=== PATIENT | female | born 1935 | race Caucasian/White ===

== ENCOUNTER → 2019-07-09 14:22 | Outpatient (CLI) | payer MEDICARE, SELFPAY ==
--- NOTE | ~2019-07-09 | XR_ITS ---
XR chest 2V DATE: 07/09/2019 14:43 INDICATION: Left chest pain under breast radiating to back for 2 weeks. TECHNIQUE: 2 views COMPARISON: 01/19/2016 right RIBS with PA chest FINDINGS: Normal heart size. No hilar or mediastinal enlargement. No pulmonary infiltrate or consolid ation, pleural effusion or pulmonary vascular congestion or pneumothorax. Diffuse osteopenia. IMPRESSION: No active cardiopulmonary disease Reviewed, dictated and finalized at location A.
== END ==
PROVIDERS: PCP Family Medicine; Visit Provider Family Medicine
DX: R10.13 Epigastric pain (principal); R07.9 Chest pain, unspecified
CPT/HCPCS: 71046

== ENCOUNTER 2019-07-24 10:33 | Outpatient (CLI) | payer MEDICARE, SELFPAY ==
--- NOTE | ~2019-07-24 | US_ITS ---
EXAMINATION: US right upper quadrant DATE: 07/24/2019 11:12 INDICATION: Generalized abdominal pain. TECHNIQUE: Multiple grayscale and Doppler ultrasound images of the abdomen were obtained. COMPARISON: None FINDINGS: The visualized portions of the head, body, and tail of the pancreas are normal. There is di ffuse hepatic steatosis. There is normal flow in main portal vein. The gallbladder is normal in size. No gallstones or gallbladder wall thickening. There is no sonographic Jimenez sign. The common duct m easures 8 mm, which is normal for age. IMPRESSION: 1. Diffuse hepatic steatosis. Reviewed, dictated and finalized at location A.
== END 2019-07-24 10:34 | disposition home or self-care (01) ==
LOC: ANHIMG 10:35
PROVIDERS: PCP Family Medicine; Visit Provider Family Medicine
DX: R10.9 Unspecified abdominal pain (principal); K76.0 Fatty (change of) liver, not elsewhere classified
CPT/HCPCS: 76705

== ENCOUNTER 2019-09-29 08:29 | Outpatient (CLI) | payer MEDICARE, SELFPAY ==
--- NOTE | ~2019-09-29 | MM_ITS ---
EXAMINATION: MM screen RT diag LT w divya HISTORY: Breast pain TECHNIQUE: Additional 3-D tomosynthesis images of the left breast were performed and synthetic 2-D im ages were generated. Screening right mammogram. CAD analysis was submitted and interpreted. COMPARISON: 05/27/2012 BREAST PARENCHYMAL COMPOSITION: BREAST PARENCHYMAL COMPOSITION: There are scattered areas of fibroglandular density. FINDINGS: There are no suspicious masses, calcifications or architectural distortion in either breast to suggest malignancy. IMPRESSION: 1. No mammographic evidence for malignancy. 2. Routine yearly screening mammogram and regular clinical breast examination are recommended. BI-RADS CATEGORY 1 - NEGATIVE Reviewed, dictated and finalized at location A. IMPRESSION: 1. No mammographic evidence for malignancy. 2. Routine yearly screening mammogram and regular clinical breast examination a re recommended. BI-RADS CATEGORY 1 - NEGATIVE
== END 2019-09-29 08:30 | disposition home or self-care (01) ==
PROVIDERS: PCP Family Medicine; Visit Provider Family Medicine
DX: Z12.31 Encounter for screening mammogram for malignant neoplasm of breast (principal); N64.4 Mastodynia
CPT/HCPCS: 77063; 77065; 77067

== ENCOUNTER 2022-01-15 10:47 | Outpatient (CLI) | payer MEDICARE, SELFPAY ==
--- NOTE | ~2022-01-15 | XR_ITS ---
EXAM: XR lumbar spine 2-3V DATE: 01/15/2022 11:12 HISTORY: LOW BACK PAIN W/RT LEG NUMBNESS LT LEG PAIN . COMPARISON: None available. FINDINGS: Incompletely visualized left hip arthroplasty. Upper abdominal vascular stent, possibly SMA origin. Lower abdominal vascular stent, possibly the left common iliac vein. Mild lumbar scoliosis 5 nonrib-bearing lumbar-type vertebral bodies. Pedicles intact. Normal vertebral body alignment. Verte bral body heights preserved. Multilevel mild disc space narrowing and marginal osteophytosis. Moderat e-severe narrowing at L5-S1. Multilevel facet hypertrophy and sclerosis. No fracture or dislocation. Aortic calcifications without evident aneurysm. IMPRESSION: Multilevel degenerative disc disease, moderate-severe at L5-S1. Multilevel facet arthropa thy. Reviewed, dictated and finalized at location K. E PROCESS OPERATOR IMPRESSION: Multilevel degenerative disc disease, moderate-severe at L5-S1. Mul tilevel facet arthropathy.
== END 2022-01-15 10:48 | disposition home or self-care (01) ==
LOC: ANHIMG 10:52
PROVIDERS: PCP Family Medicine; Visit Provider Family Medicine
DX: M51.36 Other intervertebral disc degeneration, lumbar region (principal); M51.37 Other intervertebral disc degeneration, lumbosacral region
CPT/HCPCS: 72100

== ENCOUNTER 2022-05-17 10:29 | Outpatient (CLI) | payer MEDICARE, SELFPAY ==
--- NOTE | ~2022-05-17 | XR_ITS ---
AP and lateral views of the left tibia/fibula Clinical History: Pain Findings: No acute fracture or dislocation is seen. Osseous alignment is anatomic. Joint spaces are p reserved without significant erosive or degenerative change. Soft tissues are unremarkable. Impression: Unremarkable left tib-fib radiographs. Reviewed, dictated and finalized at [facility]. Impression: Unremarkable left tib-fib radiographs.
== END 2022-05-17 10:30 | disposition home or self-care (01) ==
PROVIDERS: PCP Family Medicine; Visit Provider Physician Assistant
DX: M79.605 Pain in left leg (principal)
CPT/HCPCS: 73590

== ENCOUNTER 2023-09-17 10:25 | Observation (INO) | payer MEDICARE, SELFPAY ==
[2023-09-17] VITALS (24 sets, daily range): BP systolic 110–147; BP diastolic 55–60; PULSE 67–97; RESP 10–26; TEMP 37.3–37.9; O2SAT 90–97; BMI 30.7; BMI 31.0
--- NOTE | 2023-09-17 | ECHO_ITS ---
Patient Info Name: Shannon Sanderson Age: 88 years : 1935 Gender: Female Ht: 65 in Wt: 185 lbs BSA: 1.99 m2 HR: 75 bpm Heart Rhythm: Sinus Rhythm Technical Quality: Good Exam Date: 09/17/2023 3:47 PM Exam Location: Echo Lab Patient Status: Outpatient Admit Date: 09/17/2023 Staff Ordering Physician: Nia Doshi PA-C Business Transformation Consultant: Anya Marquez RDCS Attending Provider: Hamida Mchugh MD Referring Physician: Glenda EDWARD; Exam Type: CA echo dop color flow w con Study Info Indications - elevated troponin Complete two-dimensional, color flow and Doppler transthoracic echocardiogram is performed. Summary 1. Complete two-dimensional, color flow and Doppler transthoracic echocardiogram is performed. 2. Left ventricular chamber dimension is normal. 3. Left ventricular systolic function is normal, estimated at 65-70%. 4. There is mildly increased left ventricular wall thickness. 5. The left ventricular diastolic function is grade I diastolic dysfunction. 6. Right ventricular chamber dimension is mildly enlarged. 7. Left atrial chamber dimension is moderately enlarged. 8. Right atrial chamber dimension is mildly enlarged. 9. 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 10. There is mild mitral valve regurgitation. 11. The mitral valve annulus is severely calcified. 12. There is mild tricuspid valve regurgitation. 13. Mild pulmonary hypertension, estimated pulmonary arterial systolic pressure is 39 mmHg. Left Ventricle Left ventricular chamber dimension is normal. Left ventricular systolic function is normal, estimated at 65-70%. There is mildly increased left ventricular wall thickness. The left ventricular diastolic function is grade I diastolic dysfunction. Right Ventricle Right ventricular chamber dimension is mildly enlarged. Right ventricular systolic function is normal. Left Atria Left atrial chamber dimension is moderately enlarged. Right Atria Right atrial chamber dimension is mildly enlarged. Atrial Septum Intact interatrial septum visualized by color flow imaging. Aortic Valve The bioprosthetic aortic valve is normal. 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 There is trace regurgitation of the bioprosthetic aortic valve. Pulmonic Valve The pulmonic valve is normal. There is no pulmonic valve stenosis. There is trace pulmonic regurgitation. Mitral Valve There is mild mitral valve stenosis. There is mild mitral valve regurgitation. The mitral valve annulus is severely calcified. Tricuspid Valve The tricuspid valve leaflets are normal. There is no significant tricuspid valve stenosis. There is mild tricuspid valve regurgitation. Mild pulmonary hypertension, estimated pulmonary arterial systolic pressure is 39 mmHg. Pericardium/Pleural The pericardium appears normal. There is no pericardial effusion. Inferior Vena Cava Normal inferior vena cava with <50% collapse upon inspiration consistent with normal right atrial pressure, 10 mmHg. Aorta The aortic root size at the sinus of Valsalva is normal. Left Ventricular Outflow Tract Name Value Normal LVOT 2D LVOT Diamet
--- NOTE | ~2023-09-17 | XR_ITS ---
EXAMINATION: XR chest 2V DATE: 09/17/2023 10:57 INDICATION: Cough. Shortness of breath. TECHNIQUE: Frontal and lateral views of the chest were obtained. COMPARISON: Chest 2 views 07/09/2019 FINDINGS: There are airspace opacities in all right lung zones, worst in right upper lobe. No pleural effusion or pneumothorax. The heart size is normal. There are changes of aortic valve replacement. IMPRESSION: 1. Airspace opacities in all right lung zones, worst in right upper lobe, consistent with pneumonia. Reviewed, dictated and finalized at location A. IMPRESSION: 1. Airspace opacities in all right lung zones, worst in right upper lobe, consi stent with pneumonia.
--- NOTE | ~2023-09-17 | CT_ITS ---
EXAMINATION: CTA chest PE protocol DATE: 09/17/2023 13:26 INDICATION: Cough. Shortness of breath. TECHNIQUE: Computed tomography angiography (CTA) of the chest was performed with 100 mL Omnipaque-350 intravenous contrast timed to evaluate the pulmonary arteries. Coronal maximum intensity projection 3D-reconstructions were created by the technologist. Automated exposure control and iterative reconst ruction technique were employed. The dose-length product was 470.01 mGy-cm. COMPARISON: None. FINDINGS: The lungs demonstrate mild atelectasis. There are patchy airspace and groundglass opacities and centrilobular nodules in right upper lobe and right lower lobe, consistent with pneumonia. There is smooth septal thickening bilaterally, consistent with mild pulmonary edema. No pleural effusion. There is a small sliding hiatal hernia. The heart size is normal. There are coronary artery calcifica tions. No pericardial effusion. There are changes of aortic valve replacement. There is no pulmonary embolus. There is severe thoracic spondylosis. IMPRESSION: 1. Pneumonia in right upper lobe and right lower lobe. 2. Mild pulmonary edema. 3. No pulmonary embolus. Reviewed, dictated and finalized at location A.
--- NOTE | 2023-09-17 10:34 | ECG_ITS ---
Test Date: 2023-09-17 10:38:46 Measurements Intervals [place] Rate: 93 P: 56 NC: 124 QRS: -55 QRSD: 101 T: 49 QT: 331 QTc: 412 Interpretive Statements SINUS RHYTHM LEFT AXIS DEVIATION POSSIBLE LEFT ATRIAL ENLARGEMENT LOW QRS VOLTAGE IN PRECORDIAL LEADS ANTEROSEPTAL MYOCARDIAL INFARCTION , OF INDETERMINATE AGE INFERIOR INFARCT, AGE INDETERMINATE BORDERLINE ST-T WAVE ABNORMALITY- LAT/HIGH LAT LEADS BASELINE ARTIFACT- I, II, AVR ABNORMAL ECG No previous ECG available for comparison Electronically Signed On 09-17-2023 11:01:43 CDT by Benja Liu D.O.
[2023-09-17 10:56] LABS: Basophils Percent Auto 0.3 % (0.2-1.2); Eosinophils Absolute Auto 0.1 K/mm3 (0-0.3); Eosinophils Percent Auto 0.5 % (0-4.4); Hematocrit 40.7 % (37.0-47.0); Hemoglobin 13.3 g/dL (12.0-15.0); Immature Granulocyte Absolute 0.06 K/mm3 (0.00-0.031); Immature Granulocyte Percent A 0.5 % (0-0.5); Lymphocytes Absolute Auto 0.76 K/mm3 (0.9-3.2); Lymphocytes Percent Auto 6.7 % (18.3-44.2); Mean Corpuscular HGB Conc 32.7 g/dl (32-36); Mean Corpuscular Hemoglobin 31.1 pg (26-34); Mean Corpuscular Volume 95.3 fl (80-100); Monocytes Absolute Auto 0.6 K/mm3 (0.1-0.6); Monocytes Percent Auto 5.4 % (2.6-8.5); Neutrophils Absolute Auto 9.9 K/mm3 (1.3-6.7); Neutrophils Percent Auto 86.6 % (45.5-73.1); Platelet Count Result 212 k/mm3 (150-375); Red Blood Count 4.27 M/mm3 (4.2-5.4); Red Cell Distribution Width 12.9 % (11.5-14.5); White Blood Count 11.4 K/mm3 (4.5-10.0)
[2023-09-17 11:05] LABS: Alanine Aminotransferase 36 U/L (6-35); Albumin Level 4.3 g/dL (3.5-5.1); Alkaline Phosphatase 86 U/L (38-126); Anion Gap 13 mmol/L (4-12); Aspartate Amino Transferase 54 U/L (14-36); Bilirubin,Total 0.9 mg/dL (0.2-1.3); Blood Urea Nitrogen 13 mg/dL (7-17); Calcium 9.2 mg/dL (8.4-10.2); Carbon Dioxide 23 mmol/L (22-30); Chloride 100 mmol/L (98-107); Estimated CRCL calculation 61 ml/min; Estimated Glomerular Filt Rate > 60; Glucose 148 mg/dL (65-110); Potassium 3.7 mmol/L (3.4-5.0); Sodium 136 mmol/L (137-145)
[2023-09-17 11:16] LABS: NT Pro B Type Natriuretic Pept 300 pg/mL (19.9-100); Troponin I 0.017 ng/mL (0.000-0.034)
[2023-09-17 11:20] LABS: Prothrombin Time 13.6 Seconds (11.1-14.7)
[2023-09-17 11:27] LABS: D Dimer 2.08 ug/mL (<0.48)
[2023-09-17 11:32] LABS: Influenza A QL RT-PCR Negative (Negative); Influenza B QL RT-PCR Negative (Negative); RSV RNA, RT-PCR Negative (Negative); SARS-CoV-2 RNA PCR Negative (Negative)
[2023-09-17] MEDS: ACETAMINOPHEN 500 MG TABLET 1000 MG PO (12:34)
--- NOTE | 2023-09-17 12:50 | ED.WEAKNESS ---
HPI - Weakness General Chief complaint: Weakness Stated complaint: weakness, cough Time Seen by Provider: 09/17/23 10:46 Source: patient Mode of arrival: ambulatory Limitations: no limitations History of Present Illness HPI Narrative: Patient is an 88-year-old female who presents to ED with cough and weakness. Patient's family members at bedside reports patient has been sick for the last 3 weeks, but has become worse over the last few days. C/o cough, chills, SOB -worse with exertion, and generalized weakness. Reports she required assistance with simple ambulation today which is not usual for her, as well as N/V today, which prompted family to bring her to the emergency department. Family does report she was exposed to COVID-19 recently. Patient denies known fevers, focal weakness or numbness, chest pain, lower extremity pain or swelling, hemoptysis, abdominal pain. Related Data Home Medications Medication Instructions Recorded Confirmed amlodipine 10 mg tablet 10 mg PO DAILY 09/02/23 09/17/23 atorvastatin 40 mg tablet 40 mg PO DAILY 09/02/23 09/17/23 clopidogrel 75 mg tablet 75 mg PO DAILY 09/02/23 09/17/23 furosemide 20 mg tablet 20 mg PO QAM 09/02/23 09/17/23 levothyroxine 50 mcg capsule 50 mcg PO DAILY 09/02/23 09/17/23 omeprazole 20 mg capsule,delayed 20 mg PO DAILY 09/02/23 09/17/23 release potassium chloride 10 mEq 10 meq PO DAILY 09/02/23 09/17/23 tablet,extended release trazodone 50 mg tablet 50 mg PO QHS 09/02/23 09/17/23 Allergies Allergy/AdvReac Type Severity Reaction Status Date / Time No Known Allergies Allergy Verified 09/17/23 15:27 Review of Systems Review of Systems: CONSTITUTIONAL: See HPI. ENT: Denies rhinorrhea, congestion, sore throat. CARDIOVASCULAR: Denies chest pain, palpitations, or edema. RESPIRATORY: See HPI. GASTROINTESTINAL: See HPI. All systems reviewed & are unremarkable except as noted in HPI and below PMFSH Past Medical History Medical History Alcohol abuse Coronary heart disease DVT (deep venous thrombosis) Heart valve problem Hyperlipidemia Hypertension Hypothyroidism Presence of stent in coronary artery in patient with coronary artery disease Skin cancer Surgical History Surgical History Aortic valve replaced History of appendectomy History of tubal ligation Status post bilateral total hip replacement Family History Family History Father , lung cancer No problems noted. Mother Heart disease Sibling , cancer No problems noted. Social History Social History Social History: Lives alone with dog. Smoking packs per day: 1 Smoking cigarettes per day: 20.0 Years smoked: 10 Smoking pack-years: 10.00 Smoking status: Former smoker Tobacco type: cigarettes Second hand tobacco smoke exposure: Yes Alcohol intake: current Alcohol use details: 3-4 glasses of wine/night and will occasionally drink a few beers as well. 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 Gender identity (if verbalized by the patient): Female Spiritual care concerns: No Exam Narrative: GENERAL: Elderly, mildly unwell appearing, Obese with BMI of 31.1 HEAD: Normoce
[2023-09-17] MEDS: SODIUM CHLORIDE 0.9% IV 1,000 ML 999 ML IV CONT (13:28)
[2023-09-17 14:14] LABS: Appearance Urine Clear (Clear); Bilirubin Urine Negative (Negative); Blood Urine Negative (Negative); Color Urine Yellow (Yellow); Glucose Urine UA Negative (Negative); Ketones Urine Negative (Negative); Leukocyte Esterase Ur Negative LEU/UL (Negative); Nitrate Urine Negative (Negative); Protein Urine Negative (Negative); Specific Grav Ur > 1.045 (1.001-1.035); Urobilinogen Urine 0.2 mg/dL (<2.0)
[2023-09-17] MEDS: AZITHROMYCIN 500 MG/NS 250 ML 500 MG/250 ML BAG 250 MG IVPB (14:16)
[2023-09-17 14:25] LABS: Add Urine Microscopic? NO
--- NOTE | 2023-09-17 14:27 | PM.IMHP ---
H&P: HPI History of Present Illness Date/Time: 09/17/23 14:27 Chief Complaint: Weakness and cough Narrative: 88 year old female with past medical history of CAD s/p stent placement, aortic valve replacement, hypertension, hyperlipidemia, hypothyroidism, history of bilateral DVTs s/p stents, and skin cancer s/p excision presents to the hospital for worsening weakness and cough. Patient gives a majority of the history and her daughter adding additional history with her permission. Of note patient reports recent exposure to Covid. The weakness and cough started approximately 3 weeks ago and has become increasingly worse since last Saturday. Patient states that the cough has become more severe and is now waking her from her sleep. The cough is nonproductive. She notes increased shortness of breath with ambulation, but none at rest. She denies chest pain and palpitations. She denies increased cough/choking while eating. She had two episodes of emesis today with movement. She denies hematemesis and has no abdominal pain. She reports increased falls, with the most recent being Saturday where she slid off of her bed. She denies lightheadedness/dizziness prior to falls and did not hit her head or lose consciousness. She was unable to get up, requiring her son to assist her back to bed. Discussed code status with patient and she wishes to be made a DNR. ED workup: Febrile (100.3F). Leukocytosis 11.4 on CBC. CMP with Na 126, K 3.7, BUN/Cr 13/0.6. LFTs mildly elevated. BNP 300. Troponin 0.084. PT/INR 13.6/1.0. PTT 22. D dimer 2.08. Urinalysis unremarkable. Covid/flu/RSV negative. Chest XR showing airspace opacities in all right lung zones, worst in right upper lobe, consistent with pneumonia. Chest CTA showing pneumonia of the right upper/lower lobe, mild pulmonary edema and no PE. Review of Systems Review of Systems: All systems reviewed & are unremarkable except as noted in HPI and below [facility] Past Medical History Medical History (Updated 09/17/23 @ 15:35 by Nia Doshi PA-C) Alcohol abuse Coronary heart disease DVT (deep venous thrombosis) Heart valve problem Hyperlipidemia Hypertension Hypothyroidism Presence of stent in coronary artery in patient with coronary artery disease Skin cancer Surgical History Surgical History (Updated 09/17/23 @ 15:29 by Nia Doshi PA-C) Aortic valve replaced History of appendectomy History of tubal ligation Status post bilateral total hip replacement Family History Family History (Updated 09/02/23 @ 14:49 by Tamiko Villarreal [facility]) Father , lung cancer No problems noted. Mother Heart disease Sibling , cancer No problems noted. Social History Social History (Updated 09/17/23 @ 15:31 by Nia Doshi PA-C) Social History: Lives alone with dog. Smoking packs per day: 1 Smoking cigarettes per day: 20.0 Years smoked: 10 Smoking pack-years: 10.00 Smoking status: Former smoker Tobacco type: cigarettes Second hand tobacco smoke exposure: Yes Alcohol intake: current Alcohol use details: 3-4 glasses of wine/night and will occasionally drink a few beers as well. 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 Gender identity (if verbalized by the patient): Female Spiritual care concerns: No Meds Home Medications and Allergies Home Medications Medication Instructions Recorded Confirmed Type amlo
[2023-09-17 14:57] LABS: Troponin I 0.084 ng/mL (0.000-0.034)
--- NOTE | 2023-09-17 15:11 | PC.NURSE ---
This patient, Shannon Sanderson, was admitted to [facility] Surg Room 306-01 at 15:11. Patient/family oriented to hospital policies and general routines including ID bracelet, bed and alarms, visiting hours, pain management, procedures, bathroom and other care routines, personal items, smoking policy, room service/diet, and visiting hours. Information on how to activate the Rapid Response Team has been discussed. Patient/Family are encouraged to report perceived risks to care and to ask questions if they do not understand what they are told or what they should do.
[2023-09-17] MEDS: PERFLUTREN LIPID MICROSPHERES 1.5 ML VIAL DILUTED TO 10 ML TOTAL VOLUME IV PUSH (15:50)
--- NOTE | 2023-09-17 16:17 | IVDEFINITY ---
Prior to administration of IV Definity the patient was educated on the risks and benefits of the imaging enhancing agent including potential adverse side effects. The patient verbalized understanding. Allergies were verified. No exclusion criteria were identified and at least one of the following inclusion criteria were met: 1) physician request, 2) patient technically difficult to image (per the [place] [employer] Echocardi[employer] guidelines of two or more segments not discernable within the apical view), or 3) questionable left ventricular function. ?
[2023-09-17] MEDS: FUROSEMIDE 20 MG TABLET PO (17:13)
[2023-09-17] MEDS: PANTOPRAZOLE 40 MG TABLET PO (17:13)
[2023-09-17] MEDS: LEVOTHYROXINE SODIUM 50 MCG TABLET PO (17:13)
[2023-09-17] MEDS: CLOPIDOGREL BISULFATE 75 MG TABLET PO (17:13)
[2023-09-17] MEDS: LOSARTAN POTASSIUM 50 MG TABLET PO (17:13)
[2023-09-17] MEDS: amLODIPine BESYLATE 10 MG TABLET PO (17:13)
[2023-09-17] MEDS: POTASSIUM CHLORIDE 10 MEQ ER TABLET PO (17:13)
[2023-09-17] MEDS: ATORVASTATIN 40 MG TABLET PO (17:14)
[2023-09-17 17:54] LABS: Lactic Acid Reflex 1.2 mmol/L (0.7-2.0)
[2023-09-17 18:12] LABS: Troponin I 0.111 ng/mL (0.000-0.034)
--- NOTE | 2023-09-17 18:18 | PC.NURSE ---
Addendum entered by Tara Alexander RN 09/17/23 18:20: provider reached at 1820. Pt denies any pain, no new orders at this time. Original Note: Attempted to reach provider regarding patient's elevated troponin of .11 @ 1815. Left voicemail.
--- NOTE | 2023-09-17 18:22 | PC.NURSE ---
Patient reports last drink was awhile ago when asked how long ago that would be patient stated a couple weeks
[2023-09-17 18:41] LABS: Procalcitonin 0.5 ng/mL
[2023-09-17] MEDS: traZODone HCL 50 MG TABLET PO (20:36)
[2023-09-17 23:51] LABS: Glucose Point of Care 94 mg/dl (65-105)
[2023-09-18] VITALS (8 sets, daily range): BP systolic 118–148; BP diastolic 40–68; PULSE 60–73; RESP 14–19; TEMP 36.4–36.8; O2SAT 92–98
[2023-09-18] MEDS: LEVOTHYROXINE SODIUM 50 MCG TABLET PO (05:32)
[2023-09-18 06:09] LABS: Basophils Percent Auto 0.3 % (0.2-1.2); Eosinophils Absolute Auto 0.1 K/mm3 (0-0.3); Eosinophils Percent Auto 0.7 % (0-4.4); Hematocrit 38.7 % (37.0-47.0); Hemoglobin 12.1 g/dL (12.0-15.0); Immature Granulocyte Absolute 0.05 K/mm3 (0.00-0.031); Immature Granulocyte Percent A 0.5 % (0-0.5); Lymphocytes Absolute Auto 2.26 K/mm3 (0.9-3.2); Lymphocytes Percent Auto 21.1 % (18.3-44.2); Mean Corpuscular HGB Conc 31.3 g/dl (32-36); Monocytes Absolute Auto 0.6 K/mm3 (0.1-0.6); Monocytes Percent Auto 5.7 % (2.6-8.5); Neutrophils Absolute Auto 7.7 K/mm3 (1.3-6.7); Neutrophils Percent Auto 71.7 % (45.5-73.1); Platelet Count Result 206 k/mm3 (150-375); Red Blood Count 4.03 M/mm3 (4.2-5.4); White Blood Count 10.7 K/mm3 (4.5-10.0)
[2023-09-18 06:21] LABS: Alanine Aminotransferase 38 U/L (6-35); Albumin Level 3.9 g/dL (3.5-5.1); Alkaline Phosphatase 74 U/L (38-126); Anion Gap 10 mmol/L (4-12); Aspartate Amino Transferase 43 U/L (14-36); Bilirubin,Total 0.7 mg/dL (0.2-1.3); Blood Urea Nitrogen 11 mg/dL (7-17); Calcium 8.9 mg/dL (8.4-10.2); Carbon Dioxide 28 mmol/L (22-30); Chloride 100 mmol/L (98-107); Estimated CRCL calculation 53 ml/min; Estimated Glomerular Filt Rate > 60; Glucose 91 mg/dL (65-110); Sodium 138 mmol/L (137-145)
[2023-09-18] MEDS: ATORVASTATIN 40 MG TABLET PO (08:44)
[2023-09-18] MEDS: PANTOPRAZOLE 40 MG TABLET PO (08:44)
[2023-09-18] MEDS: FOLIC ACID 1 MG/0.2 ML INJ IV PUSH (08:44)
[2023-09-18] MEDS: THIAMINE HCL 200 MG/2 ML VIAL 100 MG IV PUSH (08:44)
[2023-09-18] MEDS: LOSARTAN POTASSIUM 50 MG TABLET PO (08:45)
[2023-09-18] MEDS: amLODIPine BESYLATE 10 MG TABLET PO (08:45)
[2023-09-18] MEDS: FUROSEMIDE 20 MG TABLET PO (08:45)
[2023-09-18] MEDS: CLOPIDOGREL BISULFATE 75 MG TABLET PO (08:45)
[2023-09-18] MEDS: POTASSIUM CHLORIDE 10 MEQ ER TABLET PO (08:45)
[2023-09-18] MEDS: MULTIVITAMINS THERAPEUTIC TAB (*BKC) 1 TABLET PO (08:45)
[2023-09-18 11:35] LABS: Glucose Point of Care 94 mg/dl (65-105)
--- NOTE | 2023-09-18 11:44 | PM.IMPN ---
Progress Note: A&P Assessment and Plan (1) Pneumonia: Qualifiers: Laterality: right Lung location: unspecified part of lung Pneumonia type: due to unspecified organism Qualified Code(s): J18.9 - Pneumonia, unspecified organism Code(s): J18.9 - Pneumonia, unspecified organism Status: Acute (2) Generalized weakness: Code(s): R53.1 - Weakness Status: Acute (3) Alcohol abuse: Code(s): F10.10 - Alcohol abuse, uncomplicated Status: Acute (4) Falls: Code(s): R29.6 - Repeated falls Status: Acute (5) Elevated troponin: Code(s): R79.89 - Other specified abnormal findings of blood chemistry Status: Acute (6) Hypertension: Code(s): I10 - Essential (primary) hypertension Status: Acute (7) Hypothyroidism: Code(s): E03.9 - Hypothyroidism, unspecified Status: Acute (8) Coronary heart disease: Code(s): I25.10 - Atherosclerotic heart disease of [place] coronary artery without angina pectoris Status: Acute Plan H&P via Nia Doshi PA: 88 year old female with past medical history of CAD s/p stent placement, aortic valve replacement, hypertension, hyperlipidemia, hypothyroidism, history of bilateral DVTs s/p stents, and skin cancer s/p excision presents to the hospital for worsening weakness and cough. Patient gives a majority of the history and her daughter adding additional history with her permission. Of note patient reports recent exposure to Covid. The weakness and cough started approximately 3 weeks ago and has become increasingly worse since last Saturday. Patient states that the cough has become more severe and is now waking her from her sleep. The cough is nonproductive. She notes increased shortness of breath with ambulation, but none at rest. She denies chest pain and palpitations. She denies increased cough/choking while eating. She had two episodes of emesis today with movement. She denies hematemesis and has no abdominal pain. She reports increased falls, with the most recent being Saturday where she slid off of her bed. She denies lightheadedness/dizziness prior to falls and did not hit her head or lose consciousness. She was unable to get up, requiring her son to assist her back to bed. Discussed code status with patient and she wishes to be made a DNR. ED workup: Febrile (100.3F). Leukocytosis 11.4 on CBC. CMP with Na 126, K 3.7, BUN/Cr 13/0.6. LFTs mildly elevated. BNP 300. Troponin 0.084. PT/INR 13.6/1.0. PTT 22. D dimer 2.08. Urinalysis unremarkable. Covid/flu/RSV negative. Chest XR showing airspace opacities in all right lung zones, worst in right upper lobe, consistent with pneumonia. Chest CTA showing pneumonia of the right upper/lower lobe, mild pulmonary edema and no PE. ----- September 17: So far no sputum to collect. Blood cultures pending. Quad viral screen on admission negative. Leukocytosis is improved but persistent. Pending surface echocardiogram, recheck troponin. EKG without acute ischemia. Pending therapy evaluations. Transaminitis mild, likely due to her alcohol use. Greater than 3 minute spent on alcohol abuse Education. The patient is amenable to less than 3-5 drinks per week. Advised follow-up with PCP and follow up on the transaminitis as well. Continue ceftriaxone and azithromycin. Discontinue p.r.n. Ativan, neurologic checks and CIWA scale. Continue RESEARCH TECHNICIAN Amlodipine 10 mg p.o. q.day, atorvastatin 40 mg p.o. q.day, Plavix 75 mg p.o. q.day, furosemide 20 mg p.o. q.day, levothyroxine 50 mcg p.o. q.day, omeprazole 20 mg p.o. q.day, potassium chloride 10 mEq p.o. q.day, trazodone 50 mg p.o. q.h.s F/E/N: saline lock IV, replace lytes as needed, heart healthy diet GI prophylaxis: Not indicated DVT prophylaxis: Lovenox 40 mg subQ q.day Lines: Peripheral IV Code Status: Patient wishes to be DNR Dispo: Disposition pending, therapy evaluations. Stable on medical floor. Continue telemetry --------
[2023-09-18] MEDS: AZITHROMYCIN 500 MG/NS 250 ML 500 MG/250 ML BAG 250 MG IVPB (12:32)
[2023-09-18 13:02] LABS: Troponin I 0.061 ng/mL (0.000-0.034)
[2023-09-18] MEDS: ENOXAPARIN 40 MG/0.4 ML SYRINGE SUB-Q (18:44)
[2023-09-18] MEDS: traZODone HCL 50 MG TABLET PO (20:11)
[2023-09-19 04:00] VITALS: BP 137/51; PULSE 59; RESP 14; TEMP 36.6; O2SAT 95
[2023-09-19] MEDS: LEVOTHYROXINE SODIUM 50 MCG TABLET PO (04:52)
[2023-09-19 06:36] LABS: Hematocrit 36.2 % (37.0-47.0); Hemoglobin 11.5 g/dL (12.0-15.0); Mean Corpuscular HGB Conc 31.8 g/dl (32-36); Mean Corpuscular Hemoglobin 30.3 pg (26-34); Mean Corpuscular Volume 95.5 fl (80-100); Platelet Count Result 203 k/mm3 (150-375); Red Blood Count 3.79 M/mm3 (4.2-5.4); Red Cell Distribution Width 12.7 % (11.5-14.5); White Blood Count 7.6 K/mm3 (4.5-10.0)
[2023-09-19 06:37] LABS: Basophils Percent Auto 0.3 % (0.2-1.2); Eosinophils Absolute Auto 0.2 K/mm3 (0-0.3); Eosinophils Percent Auto 2.5 % (0-4.4); Immature Granulocyte Absolute 0.03 K/mm3 (0.00-0.031); Immature Granulocyte Percent A 0.4 % (0-0.5); Lymphocytes Percent Auto 17.2 % (18.3-44.2); Monocytes Absolute Auto 0.5 K/mm3 (0.1-0.6); Monocytes Percent Auto 6.7 % (2.6-8.5); Neutrophils Absolute Auto 5.5 K/mm3 (1.3-6.7); Neutrophils Percent Auto 72.9 % (45.5-73.1)
[2023-09-19 06:54] LABS: Alanine Aminotransferase 31 U/L (6-35); Albumin Level 3.8 g/dL (3.5-5.1); Alkaline Phosphatase 72 U/L (38-126); Anion Gap 9 mmol/L (4-12); Aspartate Amino Transferase 35 U/L (14-36); Bilirubin,Total 0.5 mg/dL (0.2-1.3); Blood Urea Nitrogen 7 mg/dL (7-17); Calcium 8.8 mg/dL (8.4-10.2); Carbon Dioxide 27 mmol/L (22-30); Chloride 100 mmol/L (98-107); Estimated CRCL calculation 61 ml/min; Estimated Glomerular Filt Rate > 60; Glucose 97 mg/dL (65-110); Magnesium 1.5 mg/dL (1.6-2.3); Potassium 3.6 mmol/L (3.4-5.0); Sodium 136 mmol/L (137-145)
[2023-09-19 07:09] LABS: Procalcitonin 0.3 ng/mL
[2023-09-19 08:00] VITALS: BP 139/65; PULSE 61; RESP 20; TEMP 36.8; O2SAT 96
[2023-09-19] MEDS: amLODIPine BESYLATE 10 MG TABLET PO (08:55)
[2023-09-19] MEDS: CLOPIDOGREL BISULFATE 75 MG TABLET PO (08:56)
[2023-09-19] MEDS: PANTOPRAZOLE 40 MG TABLET PO (08:56)
[2023-09-19] MEDS: POTASSIUM CHLORIDE 10 MEQ ER TABLET PO (08:56)
[2023-09-19] MEDS: ATORVASTATIN 40 MG TABLET PO (08:56)
[2023-09-19] MEDS: MULTIVITAMINS THERAPEUTIC TAB (*BKC) 1 TABLET PO (08:56)
[2023-09-19] MEDS: FUROSEMIDE 20 MG TABLET PO (08:56)
[2023-09-19] MEDS: ENOXAPARIN 40 MG/0.4 ML SYRINGE SUB-Q (08:56)
[2023-09-19] MEDS: THIAMINE HCL 200 MG/2 ML VIAL 100 MG IV PUSH (08:56)
[2023-09-19] MEDS: LOSARTAN POTASSIUM 50 MG TABLET PO (08:57)
[2023-09-19] MEDS: FOLIC ACID 1 MG/0.2 ML INJ IV PUSH (08:57)
--- NOTE | 2023-09-19 11:24 | PM.DS ---
DS: Admitting Diagnosis Discharge Date September 19, 2023 Admitting Diagnosis Cough and weakness DS: Discharge Diagnosis Discharge Diagnosis (1) Pneumonia: Qualifiers: Laterality: right Lung location: unspecified part of lung Pneumonia type: due to unspecified organism Qualified Code(s): J18.9 - Pneumonia, unspecified organism Code(s): J18.9 - Pneumonia, unspecified organism Status: Acute (2) Generalized weakness: Code(s): R53.1 - Weakness Status: Acute (3) Alcohol abuse: Code(s): F10.10 - Alcohol abuse, uncomplicated Status: Acute (4) Falls: Code(s): R29.6 - Repeated falls Status: Acute (5) Elevated troponin: Code(s): R79.89 - Other specified abnormal findings of blood chemistry Status: Acute (6) Hypertension: Code(s): I10 - Essential (primary) hypertension Status: Acute (7) Hypothyroidism: Code(s): E03.9 - Hypothyroidism, unspecified Status: Acute (8) History of aortic valve replacement with bioprosthetic valve: Code(s): Z95.3 - Presence of xenogenic heart valve Status: Acute (9) Hypomagnesemia: Code(s): E83.42 - Hypomagnesemia Status: Acute DS: Summary Hospital Course Hospital Course: H&P via Nia Doshi PA: 88 year old female with past medical history of CAD s/p stent placement, aortic valve replacement, hypertension, hyperlipidemia, hypothyroidism, history of bilateral DVTs s/p stents, and skin cancer s/p excision presents to the hospital for worsening weakness and cough. Patient gives a majority of the history and her daughter adding additional history with her permission. Of note patient reports recent exposure to Covid. The weakness and cough started approximately 3 weeks ago and has become increasingly worse since last Saturday. Patient states that the cough has become more severe and is now waking her from her sleep. The cough is nonproductive. She notes increased shortness of breath with ambulation, but none at rest. She denies chest pain and palpitations. She denies increased cough/choking while eating. She had two episodes of emesis today with movement. She denies hematemesis and has no abdominal pain. She reports increased falls, with the most recent being Saturday where she slid off of her bed. She denies lightheadedness/dizziness prior to falls and did not hit her head or lose consciousness. She was unable to get up, requiring her son to assist her back to bed. Discussed code status with patient and she wishes to be made a DNR. ED workup: Febrile (100.3F). Leukocytosis 11.4 on CBC. CMP with Na 126, K 3.7, BUN/Cr 13/0.6. LFTs mildly elevated. BNP 300. Troponin 0.084. PT/INR 13.6/1.0. PTT 22. D dimer 2.08. Urinalysis unremarkable. Covid/flu/RSV negative. Chest XR showing airspace opacities in all right lung zones, worst in right upper lobe, consistent with pneumonia. Chest CTA showing pneumonia of the right upper/lower lobe, mild pulmonary edema and no PE. ----- September 17: So far no sputum to collect. Blood cultures pending. Quad viral screen on admission negative. Leukocytosis is improved but persistent. Pending surface echocardiogram, recheck troponin. EKG without acute ischemia. Pending therapy evaluations. Transaminitis mild, likely due to her alcohol use. Greater than 3 minute spent on alcohol abuse Education. The patient is amenable to less than 3-5 drinks per week. Advised follow-up with PCP and follow up on the transaminitis as well. Continue ceftriaxone and azithromycin. Discontinue p.r.n. Ativan, neurologic checks and CIWA scale. Continue CHARACTER ARTIST Amlodipine 10 mg p.o. q.day, atorvastatin 40 mg p.o. q.day, Plavix 75 mg p.o. q.day, furosemide 20 mg p.o. q.day, levothyroxine 50 mcg p.o. q.day, omeprazole 20 mg p.o. q.day, potassium chloride 10 mEq p.o. q.day, trazodone 50 mg p.o. q.h.s On September 19, 2023 the patient is stable for discharge to home. She is ordered physical the
[2023-09-19] MEDS: AZITHROMYCIN 500 MG/NS 250 ML 500 MG/250 ML BAG 250 MG IVPB (11:28)
[2023-09-19 12:00] VITALS: BP 140/49; PULSE 64; RESP 20; TEMP 36.5; O2SAT 95
[2023-09-19] MEDS: MAGNESIUM SULF 2 GM/WATER 50ML 2 GM/50 ML BAG IVPB (12:37)
--- NOTE | 2023-09-19 15:56 | PCPTNOTE ---
On 09/19/23, the student, [Karol Carmona], provided care and completed [facility] documentation on this patient. I have reviewed the student's documentation and agree with the findings.
== END 2023-09-19 14:45 | disposition home or self-care (01) ==
LOC: ANHED 11:14 → ANH3MEDSUR 16:56
PROVIDERS: Emergency Medicine; Student in an Organized Health Care Education/Training Program; Admitting Provider Hospitalist; Emergency Provider Physician Assistant; PCP Family Medicine; Visit Provider General Practice
DX: J18.9 Pneumonia, unspecified organism (principal); R79.89 Other specified abnormal findings of blood chemistry; R29.6 Repeated falls; R53.1 Weakness; E83.42 Hypomagnesemia; R06.02 Shortness of breath; I25.10 Atherosclerotic heart disease of native coronary artery without angina pectoris; I10 Essential (primary) hypertension; E78.5 Hyperlipidemia, unspecified; E03.9 Hypothyroidism, unspecified; F10.10 Alcohol abuse, uncomplicated; Z20.822 Contact with and (suspected) exposure to COVID-19; Z95.5 Presence of coronary angioplasty implant and graft; Z86.718 Personal history of other venous thrombosis and embolism; Z95.4 Presence of other heart-valve replacement; Z87.891 Personal history of nicotine dependence; Z79.02 Long term (current) use of antithrombotics/antiplatelets; Z66 Do not resuscitate
CPT/HCPCS: 36415; 71046; 71275; 80053; 81003; 82948; 83605; 83735; 83880; 84145; 84443; 84484; 85025; 85380; 85610; 85730; 87040; 87637; 93005; 96365; 96366; 96367; 96372; 96375; 96376; 97161; 97165; 99285; A9270; C8929; G0378; J0456; J0696; J1650; J3411; J3475; J7030; Q9957; Q9967

== ENCOUNTER 2023-11-01 11:34 | Outpatient (CLI) | payer MEDICARE, SELFPAY ==
--- NOTE | ~2023-11-01 | DEXA_ITS ---
Bone Density Report Name: EDENILSON BATRES Age: 88 Sex: Female Ethnicity: White Date of : 1935 Indication: postmenopausal; screening for osteoporosis; height loss; history of glucocorticoids; hysterectomy; secondary osteoporosis; Referring Provider: TRACIE, [facility] Study: Bone densitometry was performed. Exam Date: November 01, 2023 Accession number: [id number] Bone Density: Region BMD T-score Z-score Classification AP Spine(L1-L4) 1.016 -0.3 2.6 Normal World Health Organization criteria for BMD impression classify patients as: Normal (T-score at or above -1.0), Osteopenia (T-score between -1.0 and -2.5), or Osteoporosis (T-score at or below -2.5). Clinical Information Provided by Patient: Has taken Glucocorticoids Has secondary osteoporosis Has used the following medications: Vitamin D Has the following medical conditions: Hysterectomy Patient maximum height was 65.5 Menopause Age: 37 Drinks caffeinated beverages Onset of menses at age 12 Number of children 4 Impression: The patient has normal bone mass. The patient has risk factors, including: history of glucocorticoid therapy. Discussion: LOW RISK OF FRACTURE; BONE DENSITY IS WELL ABOVE THE MINIMUM DESIRABLE LEVEL AND ABOVE AVERAGE FOR AGE AND SEX AT ALL SKELETAL SITES TESTED. This person's bone density is above expected limits for age and sex. This is rarely clinically significant, but should be pursued if there are significant musculoskeletal complaints. The patient should follow a healthful lifestyle (good nutrition with adequate calcium and vitamin D, and appropriate weight-bearing exercise). Follow-Up: Consider repeating this study in 5 years or sooner if there is some new clinical indication. Reported by: STEPHANIE on 11/01/2023 11:58:00 AM. Reviewed, dictated and finalized at location [facility]
== END 2023-11-01 11:35 | disposition home or self-care (01) ==
LOC: ANHIMG 11:36
PROVIDERS: PCP Family Medicine; Visit Provider Family Medicine
DX: Z78.0 Asymptomatic menopausal state (principal)
CPT/HCPCS: 77080

== ENCOUNTER 2024-08-24 12:04 | Outpatient (CLI) | payer MEDICARE, SELFPAY ==
--- NOTE | ~2024-08-24 | XR_ITS ---
AP view of the pelvis and AP and lateral views of the left hip Clinical history: Pain Findings: No acute fracture or dislocation is seen. Bilateral hip arthroplasties are in place. No lukas dware complication is evident. There is moderate degenerative change of both SI joints. Soft tissues are unremarkable. Impression: No acute abnormality. Bilateral hip arthroplasty in place. 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 Reviewed, dictated and finalized at location M. Impression: No acute abnormality. Bilateral hip arthroplasty in place. 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
--- OUTSIDE RECORDS SUMMARY | 2024-08-24 12:11 | XMS_ITS | Referral Summary ---
Author Organization [facility] Physician [facility] Building [address] [place] [id number] Care Team Providers Care Associate School Psychologist Name Role Phone Carly Bowman MD Primary Care Provider + Isma Mendoza MD Unavailable Allergies Active Allergy Reactions Criticality Noted Date Comments Lisinopril Cough Low 07/20/2021 Medications amLODIPine (NORVASC) 10 mg tabletIndicatio ns:hypertension Take 10 mg by mouth daily 7 Active atorvastatin (LIPITOR) 40 mg tabletIndicatio ns:hyperlipidem ia Take 40 mg by mouth nightly 8 Active clopidogrel (PLAVIX) 75 mg tabletIndicatio ns:stent Take 75 mg by mouth daily 7 Active furosemide (LASIX) 20 mg tabletIndicatio ns:hypertension Take 20 mg by mouth daily 8 Active losartan (COZAAR) 25 mg tabletIndicatio ns:hypertension Take 25 mg by mouth daily 7 Active omeprazole (PriLOSEC) 20 mg capsuleIndicati ons:Treatment of Non-Bleeding Gastric Disorder Take 20 mg by mouth every morning 8 Active cholecalciferol (VITAMIN D-3) 1,000 unitIndications :for covid prevention Take 1,000 Units by mouth daily Active potassium chloride ER 20 mEq CR tablet Take 20 mEq by mouth daily 2 Active traZODone (DESYREL) 50 mg tablet Take 50 mg by mouth nightly 2 Active clotrimazole-be tamethasone (LOTRISONE) cream Apply 1 application topically as needed 2 Active aspirin 81 mg chewable tabletIndicatio ns:prevention of thrombosis Take 1 tablet (81 mg total) by mouth daily 30 tablet 11 2 Active levothyroxine (SYNTHROID) 50 mcg tablet Take 50 mcg by mouth daily 2 Active sertraline (ZOLOFT) 25 mg tablet Take 25 mg by mouth daily 2 Active Active Problems Problem Noted Date Diagnosed Date S/P TAVR (transcatheter aortic valve replacement ) 12/12/2021 Nonrheumatic aortic valve stenosis 11/21/2021 Overview (11/21/2021): Added automatically from request for surgery [id number] Orthopedic aftercare 02/16/2020 Hypertension 01/04/2020 Hyperlipidemia 01/04/2020 Anxiety 01/04/2020 Depression 01/04/2020 CAD (coronary artery disease) 01/04/2020 Hypothyroidism 01/04/2020 At risk for obstructive sleep apnea 01/04/2020 PAD (peripheral artery disease) 01/04/2020 Class 1 obesity in adult 01/04/2020 Primary osteoarthritis of right hip 12/08/2019 Overview (12/08/2019): Added automatically from request for surgery [id number] Immunizations Immunization Administration Dates Next Due Influenza, Trivalent, High D ose, Split, Preservative Free, Intramuscular 01/01/2019,11/06/2017,01/23/2017,12/06 Pneumococcal Conjugate PCV 13 01/23/2017 Social History Tobacco Use Types Packs/Day Years Used Date Smoking Tobacco: Former Cigarettes 1 34.1 1 943 - 04/09/1976 Smokeless Tobacco: Never Tobacco Cessation:Counseling Given: Not Answered Alcohol Use Standard Drinks/Week Comments Yes 9 (1 standard drink = 0.6 oz pur e alcohol) AUDIT-C Answer Date Recorded Q1: How often do you have a drink containing alcohol? 4 or more times a week 12/04/2021 Q2: How many drinks containi ng alcohol do you have on a typical day when you are drinking? 1 or 2 2 Q3: How often do you have si x or more drinks on one occasion? Less than monthly 12/04/2021 Personal Safety Answer Date Recorded Getting School Help Needed Not on file 02/19 Comments Unknown Sex and Gender Information Value Date Recorded Sex Assigned at Not on file Legal Sex Female 11:15 AM TENT FINISHER Gender Identity Not on file Sexual Orientation Not on file Last Filed Vital Signs Vital Sign Reading Time Taken Comments Blood Pressure 115/56 12/13/2021 4:04 PM CDT Pulse 86 12/13/2021 4:04 PM CDT Temperature 36.7 C (98.1 F) 12/13/2021 4:04 PM CDT Respiratory Rate 18 12/13/2021 8:19 AM CDT Oxygen Saturation 93% 12/13/2021 4:04 PM CDT Inhaled Oxygen Concentration - - Weight 78.2 kg (172 lb 8 oz) 12/12/2021 9:09 AM CDT Height 162.6 cm (5' 4) 12/12/2021 9:09 AM CDT Body Mass Index 29.61 12/12/2021 9:09 AM CDT Plan of Treatment Not on file Medical Devices Implanted Type Area Regulatory Affairs Strategy Specialist Device Identifier Shelf Expiration Date Model / Serial / Lot Stent Implanted:Qty: 2 Stent N/A: Coronary Stent Stent Left: Neck Stent Endoprosthesis Wallstent Rp Unistep Plus Metal L100 Cm L90 Mm L75 Cm Od18 Mm Odsec10 Fr Flexible Delivery System - [id number] Implanted:Qty: 1 on 03/08/2017 by Andrew Mann MD at [facility] [employer] [facility] 12/14/2018 [id number] / / [id number] Depuy Orth[employer]ed[employer] Inc [id number] Cup Acetabular Bi-Mentum Od51mm Femoral Proximal Press Fit - [id number] Implanted:Qty: 1 on 01/05/2020 by Kostas Mina MD at [facility] Right: Hip [employer] 11/18/2023 [id number] / / [id number] Depuy [employer] Inc [id number] Articul/Cecilio 28mm Cementless Hip +5mm 12/14 Taper Head Femoral Latex Free - [id number] Implanted:Qty: 1 on 01/05/2020 by Kostas Mina MD at [facility] Right: Hip [employer] 07/18/2024 [id number] / / [id number] Depuy [employer] Inc [id number] Actis L107 Mm Collar Hip 6 High Offset Stem Femoral - [id number] Implanted:Qty: 1 on 01/05/2020 by Kostas Mina MD at [facility] Right: Hip [employer] 03/20/2029 [id number] / / [id number] [employer] [id number] Liner Acetabular Bi-Mentum Polyethylene Od51mm Id28mm Femoral Proximal - [id number] Implanted:Qty: 1 on 01/05/2020 by Kostsa Mina MD at [facility] Right: Hip [employer] 12/19/2023 [id number] / / [id number] Medtronic Inc Resolute [place] 3mm 2.1-2.7fr 15mm 140cm Rapid Exchange Radiopaque [id number] - [id number] Implanted:Qty: 1 on 07/25/2021 by Isma Mendoza MD at [facility] [employer] Inc 04/21/2024 [id number] / / [id number] [employer] Radha Synergy Xd Monorail 3.5mm 24mm 144cm Delivery System 1 Access [id number] - [id number] Implanted:Qty: 1 on 07/25/2021 by Isma Mendoza MD at [facility] [employer] Radha 12/13/2022 [id number] / / [id number] Leonard [employer]iences Valve 23mm Aortic Diamond 3 Commander Leonard Transcatheter Ultra Low Profile [id number] - [id number] - [id number] Implanted:Qty: 1 on 12/12/2021 by Isma Mendoza MD at [facility] [employer] 06/13/2024 [id number] / [id number] / [employer] Radha Synergy Xd Monorail 2.25mm 16mm 144cm Delivery System 1 Access [id number] - [id number] Implanted:Qty: 1 on 12/12/2021 by Isma Mendoza MD at [facility] [employer] Radha 05/01/2023 [id number] / / [id number] [employer] Radha Stent Drug Eluting S Megatron Us Mr 4.32c71zi [id number] - [id number] Implanted:Qty: 1 on 12/12/2021 by Isma Mendoza MD at [facility] [employer] Radha 06/06/2022 [id number] / / [id number] Medtronic Card Vasc Surgery 2.00 X 12mm Rick Riley Rx Coronary Stent [id number] - [id number] Implanted:Qty: 1 on 12/12/2021 by Isma Mendoza MD at [facility] Medtronic Card Vasc Surgery 04/28/2023 [id number] / / [id number] [employer] V[employer] Device Clsr Perclose Prostyle Sut-Mediatd Closure-Repair Sys 15966-66 - [id number] Implanted:Qty: 1 on 12/12/2021 by Isma Mendoza MD at [facility] [employer] [id number] / / [employer] Vascular Device Clsr Perclose Prostyle Sut-Mediatd Closure-Repair Sys 68422-68 - [id number] Implanted:Qty: 1 on 12/12/2021 by Isma Mendoza MD at [facility] [employer] [id number] / / Insurance [employer] MEDICARE PPO [employer] MEDICARE PPO HUMANA MEDICARE HMO Advance Directives For more information, please contact: [phone] * Full Code (Latest Code Status on File) Date Activated Date Inactivated Comments 01/05/2020 1:33 PM 01/06/2020 5:27 PM * Full Code Date Activated Date Inactivated Comments 04/17/2017 6:06 PM 04/18/2017 2:33 PM Care Teams Associate School Psychologist Relationship Specialty Start Date End Date Carly Bowman MD PCP - General Family Medicine 02/01/17 Isma Mendoza MD Consulting Physician Cardiology 07/26/21
--- OUTSIDE RECORDS SUMMARY | 2024-08-24 12:11 | XMS_ITS | Clinical Summary ---
Author Organization [facility] Address [address] [place] [address] Care Team Providers Care Hemodialysis Rn Name Role Phone Carly Bowman MD Primary Care Provider [phone] Kostas Mina MD Unavailable [phone] Medications ALPRAZolam 0.5 MG tabletIndicati ons:Anxiety Take 0.5 mg by mouth daily as needed for Anxiety. Indications: Feeling Anxious 01/07/20 Active AMLODIPINE BENZOATE ORIndications: Hypertension Take 10 mg by mouth daily. Indications: High Blood Pressure Disorder 01/07/20 Active aspirin 81 MG chewable tabletIndicati ons:Hip replacement, post op DVT screen Chew 81 mg by mouth 2 (two) times a day. Indications: Hip replacement, post op DVT screen 01/07/20 Active atorvastatin 40 MG tabletIndicati ons:Hyperlipid emia Take 40 mg by mouth nightly at bedtime. Indications: High Amount of Fats in the Blood 01/07/20 Active vitamin D3, cholecalcifero l, 1000 UNIT Tab tabletIndicati ons:Vitamin and/or Mineral Deficiency Take 1,000 Units by mouth daily. Indications: Vitamin and/or Mineral Deficiency 01/07/20 Active clopidogrel (PLAVIX) 75 MG tabletIndicati ons:Prophylaxi s of Deep Vein Thrombosis in Orthopedic Surgery Take 75 mg by mouth daily. Indications: Prophylaxis of Deep Vein Thrombosis in Orthopedic Surgery 01/07/20 Active furosemide 20 MG tabletIndicati ons:Hypertensi on Take 20 mg by mouth daily. Indications: High Blood Pressure Disorder 01/07/20 Active levothyroxine 25 MCG tabletIndicati ons:Hypothyroi dism Take 25 mcg by mouth every morning. Indications: Underactive Thyroid 01/07/20 Active losartan 25 MG tabletIndicati ons:Hyperlipid emia Take 25 mg by mouth daily. Indications: High Amount of Fats in the Blood 01/07/20 Active omeprazole 20 MG capsuleIndicat ions:Gastroeso phageal reflux disease (GERD), poorly controlled Take 20 mg by mouth daily. Indications: Gastroesophageal reflux disease (GERD), poorly controlled 01/07/20 Active potassium chloride CR (KLOR-CON 10) 10 MEQ Tab CR tabletIndicati ons:Vitamin and/or Mineral Deficiency Take 10 mEq by mouth daily. Indications: Vitamin and/or Mineral Deficiency 01/07/20 Active senna-docusate (SENNA-DOCUSAT E SODIUM) 8.6-50 MG tabletIndicati ons:Constipati on Take 2 tablets by mouth 2 (two) times daily as needed for Constipation. Indications: Constipation 01/07/20 Active Social History Tobacco Use Types Packs/Day Years Used Date Smoking Tobacco: Never Assessed Comments Unknown Sex and Gender Information Value Date Recorded Sex Assigned at Not on file Legal Sex Female 6:41 AM BOW REHAIRER Gender Identity Not on file Sexual Orientation Not on file Last Filed Vital Signs Vital Sign Reading Time Taken Comments Blood Pressure 118/60 02/02/2020 9:01 AM BOW REHAIRER Pulse 80 02/02/2020 9:01 AM BOW REHAIRER Temperature 35.7 C (96.3 F) 02/02/2020 9:01 AM BOW REHAIRER Respiratory Rate 18 02/02/2020 9:01 AM BOW REHAIRER Oxygen Saturation 98% 02/02/2020 9:01 AM BOW REHAIRER Inhaled Oxygen Concentration - - Weight 81.6 kg (180 lb) 01/07/2020 11:56 AM BOW REHAIRER Height 165.1 cm (5' 5) 01/07/2020 11:56 AM BOW REHAIRER Body Mass Index 29.95 01/07/2020 11:56 AM BOW REHAIRER Plan of Treatment Health Maintenance Due Date Last Done Comments DTaP, Tdap and Td Vaccines ( 1 - Tdap) 1954 Zoster Vaccines (1 of 2) 1987 Annual Medicare Wellness Visit 2002 RSV Immunization or 60+ Years (1 - 1-dose 75+ series) 2012 Pneumococcal Vaccine: 50+ Ye ars (2 of 2 - PPSV23) 01/23/2018 01/23/2017 COVID-19 Vaccine (2023-2 5 season) 2023 Meningococcal B Vaccine Aged Out No l onger eligible based on patient's age to complete this topic Meningococcal Vaccine Aged Out No danica delilah eligible based on patient's age to complete this topic RSV Immunizations Under 20 Months Aged Out No longer eligible based on patient's age to complete this topic Insurance HUMANA Advance Directives * Full Code (Latest Code Status on File) Date Activated Date Inactivated Comments 01/07/2020 9:07 PM Care Teams Hemodialysis Rn Relationship Specialty Start Date End Date Carly Bowman MD [address] [place] [address] PCP - General FAMILY PRACTICE 01/06/20 Kostas Mina MD [address] [place] [address] SURGERY 01/06/20
--- OUTSIDE RECORDS SUMMARY | 2024-08-24 12:11 | XMS_ITS | Encounter Summary ---
Author Organization [facility] Address [address] [place] [address] Care Team Providers Care Fraud Examiner Name Role Phone Unavailable Primary Care Provider Unavailabl e Encounter Details Date Type Department Care Team (Late st Contact Info) Description 08/22/2018 Lab Requisition [facility] D[facility] [address] [facility] [place] [id number] Concha De La Torre MD [address] [facility] [address] [place] [address] Social History Tobacco Use Types Packs/Day Years Used Date Smoking Tobacco: Never Assessed Comments Unknown Sex and Gender Information Value Date Recorded Sex Assigned at Not on file Legal Sex Female 10:11 AM CDT Gender Identity Not on file Sexual Orientation Not on file documented as of this encounter Plan of Treatment Not on file documented as of this encounter Procedures Procedure Name Priority Date/Time Associated Diagnosis Comments DERMATOPATHOLOGY Routine 08/20/2018 12:0 0 AM CDT documented in this encounter Results * DERMATOPATHOLOGY (08/20/2018 12:00 AM CDT) Case Report Dermatopathology Report Case: [id number] Authorizing Provider: Concha De La Torre MD Collected: 08/20/2018 12:00 AM Pathologist: Rissa Green MD Received: 08/22/2018 09:40 AM Specimen: Skin, left upper arm 9 11:06 AM CDT DERMATOPATHOLOGY LABORATORY Final Diagnosis Specimen A. SKIN, left upper arm: DERMAL SCAR RESIDUAL SQUAMOUS CELL CARCINOMA NOT IDENTIFIED (L90.5) 9 11:06 AM CDT DERMATOPATHOLOGY LABORATORY at 1106 CDT Clinical History R/O SCCIS, biopsy proven. 9 11:06 AM CDT DERMATOPATHOLOGY LABORATORY Gross Description Specimen A: Received is one formalin filled container labeled with the patient's name and designated left upper arm. The specimen consists of a non-oriented ellipse of skin measuring [id number]. The epidermal surface is unremarkable. The margin is inked green. The 12 o'clock and 6 o'clock tips are submitted in cassette 1. The remainder of the ellipse is serially sectioned and submitted in cassettes 2-4. Jar 0. 11:06 AM [facility] DERMATOPATHOLOGY [facility]ORATORY Microscopic Description Specimen A. SKIN, left upper arm: There are fibroblasts and collagen bundles oriented parallel to the skin surface. There are elongated blood vessels, some of which are oriented perpendicular to the skin surface. No residual squamous cell carcinoma is identified. 11:06 AM [facility] DERMATOPATHOLOGY [facility]ORATORY Disclaimer An external and internal positive and negative controls are appropriate for the histochemical, immunohistochemical and immunofluorescence stain(s) in this case (if any), except where stated explicitly. The performance characteristics of the stain(s) cited in this report were developed and its performance characteristic determined by the Dermatopathology Laboratory at [facility], directed by Dr. Moris Yuen. These tests need not be, and therefore are not, approved by the [place] Food and Drug Administration. The tests are used for clinical purposes. Billing Codes Specimen Charges Stain Charges 76282 1 11:06 AM T DERMATOPATHOLOGY LABORATORY Embedded Images 11:06 AM [facility] DERMATOPATH[facility]Y [facility]OR[facility] Pathology/Cytolog y TISSUE SPECIMEN FROM SKIN / Unknown 08/20/2018 08/22/2018 9:40 AM CDT us Concha De La Torre MD LAB - PATHOLOGY/CYTOLOGY OR DERABLES Final Result DERMATOPATHOLOGY LABORATORY [facility] - Department of Dermatology [facility] [facility] [place] [address], [facility] [phone] documented in this encounter Visit Diagnoses Not on filedocumented in this encounter
--- OUTSIDE RECORDS SUMMARY | 2024-08-24 12:11 | XMS_ITS | Clinical Summary ---
Author Organization [facility] [employer] Address [address] [facility] [place] [address] Care Team Providers Care Professor Of Education Name Role Phone Unavailable Primary Care Provider Unavailabl e Source Comments [facility] [employer],non-owned Affiliates and Associated Physician Practices is amultiple site organization consisting of ambulatory clinics and hospital sitesin [place], [place], [place] and [place]. This disclosure is being madepursuant to the Care Everywhere program and may not contain all information available regarding this patient. Last updated 17.[facility] [employer] Social History Tobacco Use Types Packs/Day Years Used Date Smoking Tobacco: Never Assessed Comments Unknown Sex and Gender Information Value Date Recorded Sex Assigned at Not on file Legal Sex Female 10:11 AM CDT Gender Identity Not on file Sexual Orientation Not on file Plan of Treatment Health Maintenance Due Date Last Done Comments BONE DENSITY TESTING 1935 DTAP/TDAP/TD VACCINES (1 - Tdap) 1956 PNEUMOCOCCAL VACCINE 50+ (1 of 1 - PCV) 1987 ZOSTER VACCINE (1 of 2) 1987 Respiratory Syncytial Virus (RSV) Vaccine Pt: or over 60 yrs (1 - 1-dose 75+ series) 2012 COVID-19 VACCINE ( - 2023-2 5 season) 2023 DEPRESSION SCREENING 02/19/2024 INFLUENZA VACCINE (#1) 2024 HEPATITIS B VACCINE Aged Out No longe r eligible based on patient's age to complete this topic HIB VACCINE Aged Out No longer eligi ble based on patient's age to complete this topic HPV VACCINE Aged Out No longer eligi ble based on patient's age to complete this topic MENINGOCOCCAL (Group B) VACC INE SHARED DECISION-MAKING Aged Out No longer eligibl e based on patient's age to complete this topic MENINGOCOCCAL GROUPS A/C/Y/W VACCINE Aged Out No longer eligible b ased on patient's age to complete this topic
--- OUTSIDE RECORDS SUMMARY | 2024-08-24 12:11 | XMS_ITS | Encounter Summary ---
Author Organization [facility] Address [address] [place] [address] Care Team Providers Care Senior Capital Markets Specialist Name Role Phone Unavailable Primary Care Provider Unavailabl e Encounter Details Date Type Department Care Team (Late st Contact Info) Description 10/13/2018 Lab Requisition [facility] DermPath Lab [address] [facility], [place] [phone] Concha De La Torre MD [address] [facility] [address] [place] [address] Social History Tobacco Use Types Packs/Day Years [...] Procedure Name Priority Date/Time Associated Diagnosis Comments DERMATOPATH TECHNICAL REPORT Routine 10/10/2018 12:00 AM CDT documented in this encounter Results * DERMATOPATH TECHNICAL REPORT (10/10/2018 12:00 AM CDT) Case Report Dermatopathology Report Case: [id number] Authorizing Provider: Concha De La Torre MD Collected: 10/10/2018 12:00 AM Ordering Location: [facility] DermPath Lab Received: 10/13/2018 06:06 AM Pathologist: Rissa Green MD Specimen: Skin, left cheek 9 1:40 PM CDT DERMATOPATHOLOGY LABORATORY Clinical History R/O SCCIS, Maddox's disease, biopsy proven 9 1:40 PM CDT DERMATOPATHOLOGY LABORATORY Gross Description Specimen A: Received is one formalin filled container labeled with the patient's name and designated left cheek. The specimen consists of a non-oriented ellipse of skin measuring 22x5x3 mm. The epidermal surface is unremarkable. The margin is inked green. The 12 o'clock and 6 o'clock tips are submitted in cassette 1. The remainder of the ellipse is serially sectioned and submitted in cassette 2. Jar 0. [facility] Dermatopathology Laboratory performed the technical component only. 1:40 PM CDT DERMATOPATHOLOGY LABORATORY Embedded Images 1:40 PM CDT DERMATOPATHOLOGY LABORATORY DISCLAIMER An external and internal positive and negative controls are appropriate for the histochemical, immunohistochemical and immunofluorescence stain(s) in this case (if any), except where stated explicitly. The performance characteristics of the stain(s) cited in this report were developed and its performance characteristic determined by the Dermatopathology Laboratory at [facility], directed by Dr. Moris Yuen. These tests need not be, and therefore are not, approved by the [place] Food and Drug Administration. The tests are used for clinical purposes. 1:40 PM CDT DERMATOPATHOLOGY LABORATORY at 1340 CDT Pathology/Cytolog y TISSUE SPECIMEN FROM SKIN / Unknown 10/10/2018 10/13/2018 6:06 AM CDT Concha De La Torre MD LAB - PATHOLOGY/CYTOLOGY OR DERABLES Final Result DERMATOPATHOLOGY LABORATORY [facility] - Department of Dermatology [address] [place] [address] [address] [place] [address], [facility] [phone] documented in this encounter Visit Diagnoses Not on filedocumented in this encounter
--- OUTSIDE RECORDS SUMMARY | 2024-08-24 12:11 | XMS_ITS | Encounter Summary ---
Author Organization [facility] Address [address] [place] [address] Care Team Providers Care Radio Repairer Name Role Phone Unavailable Primary Care Provider Unavailabl e Encounter Details Date Type Department Care Team (Late st Contact Info) Description 07/09/2018 Lab Requisition [facility] Care DermPath Lab [address] [facility] [place] [phone] Concha De La Torre MD [address] [facility] [address] [place] [address] Social History Tobacco Use Types Packs/Day Years [...] Priority Date/Time Associated Diagnosis Comments DERMATOPATHOLOGY Routine 07/08/2018 12:0 0 AM CDT documented in this encounter Results * DERMATOPATHOLOGY (07/08/2018 12:00 AM CDT) Case Report Dermatopathology Report Case: [id number] Authorizing Provider: Concha De La Torre MD Collected: 07/08/2018 12:00 AM Pathologist: Stephanie Yuen MD Received: 07/09/2018 07:51 AM Specimens: A) - Skin, left cheek B) - Skin, left upper arm 9 10:13 AM CDT DERMATOPATHOLOGY LABORATORY Final Diagnosis Specimen A. 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 Irritated. Check margins. 10:13 AM [facility] DERMATOPATHOLOGY LABORATORY Gross Description Specimen A: Received is one formalin filled container labeled with the patient's name and designated left cheek. The specimen consists of a shave measuring [id number]. The margin is inked green. Jar 0. Specimen B: Received is one formalin filled container labeled with the patient's name and designated left upper arm. The specimen consists of a shave measuring [id number]. The margin is inked green. Jar 0. 10:13 AM [facility] DERMATOPATHOLOGY LABORATORY Microscopic Description Specimen A. SKIN, left cheek: The epidermis shows parakeratosis, full thickness disorderly maturation of keratinocytes, mitoses at different levels, and dyskeratotic cells. This lesion is not present at the sampled margin of the specimen. Specimen B. SKIN, left upper arm: The epidermis shows parakeratosis, full thickness disorderly maturation of keratinocytes, mitoses at different levels, and dyskeratotic cells. This lesion is present at the margin of the specimen. 10:13 AM [facility] DERMATOPATHOLOGY LABORATORY Disclaimer An external and internal positive and negative controls are appropriate for the histochemical, immunohistochemical and immunofluorescence stain(s) in this case (if any), except where stated explicitly. The performance characteristics of the stain(s) cited in this report were developed and its performance characteristic determined by the Dermatopathology Laboratory at [facility], directed by Dr. Moris Yuen. These tests need not be, and therefore are not, approved by the [place] Food and Drug Administration. The tests are used for clinical purposes. Billing Codes Specimen Charges Stain Charges 99530 [id number] 1 1 9 10:13 AM [facility] DERMATOPATHOLOGY LABORATORY Embedded Images 10:13 AM [facility] DERMATOPATHOLOGY LABORATORY Pathology/Cytology TISSUE SPECIMEN FROM SKIN / Unknown 07/08/2018 07/09/2018 7:51 AM T Miscellaneous samples (specimen) TISSUE SPECIMEN FROM SKIN / Unknown 07/08/2018 07/09/2018 7:51 AM CDT us Concha De La Torre MD LAB - PATHOLOGY/CYTOLOGY OR DERABLES Final Result DERMATOPATHOLOGY LABORATORY [facility] - Department of Dermatology [address] [place] [address], 5[address] [place] [address], [facility] [phone] documented in this encounter Visit Diagnoses Not on filedocumented in this encounter
--- OUTSIDE RECORDS SUMMARY | 2024-08-24 12:11 | XMS_ITS | Data Portability ---
Author Organization [facility] [employer], Main Office Address [address] [place] [address] Care Team Providers Care Field Supervisor Name Role Phone JOSE L RODRIGUEZ Primary Care Provider Assessment Encounter Date Assessment Date Assessment LastModified by Organization Details LastModified Time 01/13/2024 01/13/2024 88 yo F with - MICROSCOPIC HEMATURIA, new - GENERALIZED WEAKNESS - IMPAIRED MOBILITY - VIT B12 DEFICIENCY - FOLIC ACID DEFICIENCY - LT KNEE PAIN, chronic - HTN - CAD - PAD (S/p stents) - CHF - HLD - HYPOKALEMIA - HYPOTHYROIDISM - GERD - DEPRESSION - CHRONIC INSOMNIA - VIT D DEFICIENCY - OBESITY I Annual labs: 10/28/23. CTA chest with: 09/17/23. US carotids: 09/09/23. Stress echo: 03/22/23. NM stress test: 03/22/23. D/w pt about her findings, recent labs & imagines and further plan of care. Staff to call lab to get her result. Form filled out and given to pt. All meds verified with pt. Meds as directed. Diet and exercise explained in detail. Fall risk precautions explained. Educated about alarming symptoms to monitor at home. F/u with HHS as per schedule. Cont f/u with Ortho as per schedule. Cont f/u with Cardio at [facility] as per schedule. Cont f/u with Vascular surgeon as per schedule. Cont f/u with Ophtho as per schedule. HM: WWE - Pt declined. Mammo - Pt declined. DEXA - 11/01/23, normal. Colonoscopy - 4-5 yrs ago, normal as per pt. Cont f/u with GI as per schedule. Flu - 12/11. Tdap - 10/28/23. Pneumo - Pt got 2 doses. Shingrix - At pharmacy/HD. F/u in 3-4 months. UA, cytology before next visit. Annual labs in 11/12. [email or web address] Not available 01/13/2024 12:38:00 04/13/2024 04/13/2024 89 yo F with - MICROSCOPIC HEMATURIA, new - DEMENTIA, mild - GENERALIZED WEAKNESS - IMPAIRED MOBILITY - VIT B12 DEFICIENCY - FOLIC ACID DEFICIENCY - LT KNEE PAIN, chronic - HTN - CAD - PAD (S/p stents) - CHF - HLD - HYPOKALEMIA - HYPOTHYROIDISM - GERD - DEPRESSION - CHRONIC INSOMNIA - VIT D DEFICIENCY - OBESITY I Annual labs: 10/28/23. CTA chest with: 09/17/23. US carotids: 09/09/23. Stress echo: 03/22/23. NM stress test: 03/22/23. D/w pt about her findings, recent labs & imagines and further plan of care. Staff to call lab to get her result. Form filled out and given to pt. All meds verified with pt. Meds as directed. Diet and exercise explained in detail. Fall risk precautions explained. Educated about alarming symptoms to monitor at home. F/u with HHS as per schedule. Cont f/u with Ortho as per schedule. Cont f/u with Cardio at [facility] as per schedule. Cont f/u with Vascular surgeon as per schedule. Cont f/u with Ophtho as per schedule. Offered to refer to Neuro; but pt declined. HM: WWE - Pt declined. Mammo - Pt declined. DEXA - 11/01/23, normal. Colonoscopy - 4-5 yrs ago, normal as per pt. Cont f/u with GI as per schedule. Flu - 12/11. Tdap - 10/28/23. Pneumo - Pt got 2 doses. Shingrix - At pharmacy/HD. F/u in 3-4 months. UA, cytology before next visit. Annual labs in 11/12. Not available 04/13/2024 12:51:51 08/17/2024 08/17/2024 89 yo F with - LT HIP PAIN, chronic - LT KNEE PAIN, chronic - MICROSCOPIC HEMATURIA, new - DEMENTIA, mild - GENERALIZED WEAKNESS - IMPAIRED MOBILITY - VIT B12 DEFICIENCY - FOLIC ACID DEFICIENCY - HTN - CAD - PAD (S/p stents) - CHF - HLD - HYPOKALEMIA - HYPOTHYROIDISM - GERD - DEPRESSION - CHRONIC INSOMNIA - VIT D DEFICIENCY - OBESITY I Annual labs: 10/28/23. CTA chest with: 09/17/23. US carotids: 09/09/23. Stress echo: 03/22/23. NM stress test: 03/22/23. D/w pt about her findings, recent labs & imagines and further plan of care. Staff to call lab to get her result. Will do x-ray. Will refer to Ortho. All meds verified with pt. Meds as directed. Diet and exercise explained in detail. Fall risk precautions explained. Educated about alarming symptoms to monitor at home. F/u with HHS as per schedule. Cont f/u with Ortho as per schedule. Cont f/u with Cardio at [facility] as per schedule. Cont f/u with Vascular surgeon as per schedule. Cont f/u with Ophtho as per schedule. Offered to refer to Neuro; but pt declined. HM: WWE - Pt declined. Mammo - Pt declined. DEXA - 11/01/23, normal. Colonoscopy - 4-5 yrs ago, normal as per pt. Cont f/u with GI as per schedule. Flu - 12/11. Tdap - 10/28/23. Pneumo - Pt got 2 doses. Shingrix - At pharmacy/HD. F/u in 3 months. UA, cytology before next visit. Annual labs in 11/12. [email or web address] Not available 08/17/2024 15:32:42 Plan of Treatment Reminders Order Date Submit Date Provider Last Modified By Organization Details Last Modified Time Details Appointments Physical/ Annual Wellness 2024 02:15P Stephanie Rodriguez MD Not available Not available Not available Lab None recorded. Referral orthopedi c surgeon referral 2024 025 [email or web address] Soren Dykes MD, [address], [place], [address], 08/17/2024 15:34:30 home health referral 2024 025 [email or web address] Not available 08/17/2024 15:34:30 Procedures None recorded. Surgeries None recorded. Imaging XR, hip + pelvis, unilatera l 2024 025 [email or web address] [facility] ([facility]), [address], [place], [address], 08/17/2024 15:34:30 Medication Orders furosemid e 20 mg tablet 2024 025 [facility], [address], [place], [address], 08/17/2024 15:34:36 donepezil 10 mg tablet 2024 025 [facility], [address], [place], [address], 08/17/2024 15:21:08 cyanocoba román (vit B-12) 1,000 mcg sublingua l tablet 2024 025 [facility], [address], [place], [address], 08/17/2024 15:21:10 cyanocoba román (vit B-12) 1,000 mcg/mL injection solution 2024 025 Not available 08/19/2024 18:02:08 escitalop sailaja 20 mg tablet 2024 025 [facility], [address], [place], [address], 08/17/2024 15:21:11 triamcino lone acetonide 0.1 % topical cream 2024 025 [facility], [address], [place], [address], 08/17/2024 15:21:09 trazodone 150 mg tablet 2024 025 [facility], [address], [place], [address], 08/17/2024 15:21:11 folic acid 400 mcg tablet 2024 025 [facility], [address], [place], [address], 08/17/2024 15:21:13 omeprazol e 20 mg capsule,d elayed release 2024 025 [facility], [address], [place], [address], 08/17/2024 15:21:14 levothyro xine 50 mcg tablet 2024 025 [facility], [address], [place], [address], 08/17/2024 15:21:12 potassium chloride ER 20 mEq tablet,ex tended release(p art/cryst ) 2024 025 [facility], [address], [place], [address], 08/17/2024 15:21:14 donepezil 10 mg tablet 2024 025 [facility], [address], [place], [address], 04/13/2024 12:39:16 trazodone 150 mg tablet 2024 025 [facility], [address], [place], [address], 04/13/2024 12:39:14 cyanocoba román (vit B-12) 1,000 mcg sublingua l tablet 2024 025 [facility], [address], [place], [address], 04/13/2024 12:39:13 cyanocoba román (vit B-12) 1,000 mcg/mL injection solution 2024 025 Not available 04/13/2024 12:52:20 folic acid 400 mcg tablet 2024 025 [facility], [address], [place], [address], 04/13/2024 12:39:13 omeprazol e 20 mg capsule,d elayed release 2024 025 [facility], [address], [place], [address], 04/13/2024 12:39:17 levothyro xine 50 mcg tablet 2024 025 [facility], [address], [place], [address], 04/13/2024 12:39:16 escitalop sailaja 20 mg tablet 2024 025 [facility], [address], [place], [address], 04/13/2024 12:39:14 potassium chloride ER 20 mEq tablet,ex tended release(p art/cryst ) 2024 025 [facility], [address], [place], [address], 04/13/2024 12:39:17 triamcino lone acetonide 0.1 % topical cream 2024 025 [facility], [address], [place], [address], 04/13/2024 12:41:02 cyanocoba román (vit B-12) 1,000 mcg sublingua l tablet 2023 024 [facility], [address], [place], [address], 01/13/2024 12:25:48 cyanocoba román (vit B-12) 1,000 mcg/mL injection solution 2023 024 Not available 01/13/2024 12:34:36 folic acid 400 mcg tablet 2023 [facility], [address], [place], [address], 01/13/2024 12:25:46 omeprazol e 20 mg capsule,d elayed release 2023 [facility], [address], [place], [address], 01/13/2024 12:25:48 levothyro xine 50 mcg tablet 2023 [facility], [address], [place], [address], 01/13/2024 12:25:47 escitalop sailaja 20 mg tablet 2023 [facility], [address], [place], [address], 01/13/2024 12:25:47 potassium chloride ER 20 mEq tablet,ex tended release(p art/cryst ) 2023 [facility], [address], [place], [address], 01/13/2024 12:25:46 trazodone 150 mg tablet 2023 [facility], [address], [place], [address], 01/13/2024 12:25:47 cyanocoba román (vit B-12) 1,000 mcg/mL injection solution 2023 024 Not available 12/10/2023 16:36:23 cyanocoba román (vit B-12) 1,000 mcg/mL injection solution 2023 024 Not available 12/02/2023 12:56:28 Patient TargetsNo targets recorded. Patient InstructionsNo instructions recorded. Reason for Referral Orthopedic Surgeon Referral for Pain of hip region Referring Physician: [facility], Encounter Date: 08/17/2024 Home Health Referral for Mus marbin weakness Referring Physician: [facility], Encounter Date: 08/17/2024 Results Created Date Observation Date Name Description Value Unit Range Abnormal Flag Note LastModifiedBy Organization Detail LastModifiedTime 11/04/19 24 11/01/2023 DEXA No observ ation record ed. [email or web address] [facility] ([facility]) [address], [place], [address], 11/11/2023 11:54:48 Result Notes None recorded. Problems Name Problem SNOMED Code Status Onset Date Resolution Date Notes Provider Name and Address Organization Details Recorded Time Benign essential hypertensi on 9551064 Active Not Available [facility] 4 07:41:06 Hyperkalem ia 00980518 Active Not Available [facility] 4 07:41:06 Steatotic liver disease 499932259 Active Not Available [facility] 4 07:41:06 Discoid lupus erythemato wilder 686359549 Active Not Available [facility] 4 07:41:06 Localized, primary osteoarthr itis of the pelvic region and thigh 178469196 Active Not Available [facility] 4 07:41:06 Gastroesop hageal reflux disease 079535338 Active Not Available [facility] 4 07:41:06 Menopausal and postmenopa usal disorders 029501871 Active Not Available [facility] 4 07:41:06 Bronchitis 52303908 Active Not Available [facility] 4 07:41:06 Pruritus of vagina 33149978 Active Not Available [facility] 4 07:41:06 Depressed mood 836028343 Active Not Available [facility] 4 07:41:06 Sinusitis 26468657 Active Not Available [facility] 4 07:41:06 Memory impairment 873921052 Active Not Available [facility] 4 07:41:06 Peripheral vascular disease 606627351 Active 2016 Not Available [facility] 4 07:41:06 Hypothyroi dism 89370153 Active 2018 Not Available [facility] 4 07:41:06 Cough 33023148 Active Not Available [facility] 4 07:41:06 Coronary arterioscl erosis 21304212 Active 2019 Not Available [facility] 4 07:41:06 Hyperlipid emia 67648737 Active Not Available [facility] 4 07:41:06 Carotid artery stenosis 46679390 Active 2017 Not Available [facility] 4 07:41:06 Increased liver function 27130725 Active Not Available [facility] 4 07:41:06 Fatigue 74111089 Active Not Available [facility] 4 07:41:06 Pain in left lower limb 162016182 Active 2022 Not Available [facility] 4 07:41:06 Pain of left knee joint 3900502903509 07 Active 2022 Not Available [facility] 4 07:41:06 Pruritic disorder 297278062 Active 2022 Not Available [facility] 4 07:41:06 Osteoarthr itis of left knee joint 8055666330093 09 Active 2022 Not Available [facility] 4 07:41:06 Mixed anxiety and depressive disorder 021793397 Active 2023 Carly Bowman MD [address], [place], [address] , [employer] 4 16:34:55 Abnormal gait due to impairment of balance 802905300 Active 2023 Carly Bowman MD [address], [place], [address] , [employer] 4 16:42:01 Depressive disorder 39357900 Active 2023 Jose L Rodriguez MD [address], [place], [address] , [employer] 4 17:20:05 Congestive heart failure 72842193 Active 2023 Jose L Rodriguez MD [address], [place], [address] , [facility] [employer] [facility] [employer] [facility] 4 17:20:18 Hypertensi ve disorder 94078935 Active 2023 Jose L Rodriguez MD [address], [place], [address] , [facility] [employer] [facility] [employer] [facility] 4 17:20:50 Gastroesop hageal reflux disease without esophagiti s 940301840 Active 2023 Jose L Rodriguez MD [address], [place], [address] , [facility] [employer] [facility] [employer] [facility] 4 17:21:12 Chronic hypokalemi a 55569490 Active 2023 Jose L Rodriguez MD [address], [place], [address] , [facility] [employer] [facility] [employer] [facility] 4 17:21:25 Chronic insomnia 438846573 Active 2023 Jose L Rodriguez MD [address], [place], [address] , [facility] [employer] [facility] [employer] [facility] 4 17:21:37 Muscle weakness 65082638 Active 2023 Jose L Rodriguez MD [address], [place], [address] , [facility] [employer] [facility] [employer] [facility] 4 17:35:53 Impaired mobility 50606166 Active 2023 Jose L Rodriguez MD [address], [place], [address] , [facility] [employer] [facility] [employer] [facility] 4 17:53:24 Vitamin D deficiency 53582915 Active 2023 Jose L Rodriguez MD [address], [place], [address] , [facility] [employer] [facility] [employer] [facility] 4 10:44:02 Folic acid deficiency (non anemic) 09263645 Active 2023 Jose L Rodriguez MD [address], [place], [address] , [facility] 4 11:56:41 Vitamin B12 deficiency (non anemic) 90145620 Active 2023 Jose L Rodriguez MD [address], [place], [address] , [facility] 4 11:57:42 Microscopi c hematuria 710868375 Active 2023 Jose L Rodriguez MD [address], [place], [address] , [facility] 4 11:59:26 Dementia 45535806 Active 2024 Jose L Rodriguez MD [address], [place], [address] , [facility] 5 12:37:29 Dry skin dermatitis 244358806 Active 2024 Jose L Rodriguez MD [address], [place], [address] , [facility] 5 12:40:32 Pain of hip region 01662902 Active 2024 Jose L Rodriguez MD [address], [place], [address] , [facility] 5 15:18:51 Edema 943182018 Active 2024 Jose L Rodriguez MD [address], [place], [address] , [facility] 5 15:33:42 Peripheral edema 522971496 Active 2024 Jose L Rodriguez MD [address], [place], [address] , [facility] 5 15:34:01 Problem Notes None recorded. Procedures Surgical History Date Name Laterality Status Provider Name and Address Organization Details Recorded Time total replacement of hip completed JOEY Quinn [facility] 08/24/2022 12:29:37 Imaging Results None recorded. Procedure Notes None recorded. Medical Equipment None Reported. Allergies No known drug allergies Medications Name Sig Start Date Stop Date Status Note LastModified by Organization Details LastModified Time levocarniti ne and tirzepatide 100mg, 10mg/ml injectable #155 INJECT 15 MG SQ WEEKLY active Not Available Not Available No t Available losartan 50 mg tablet TAKE 1 TABLET BY MOUTH EVERY DAY 04/13 completed Not Available Not Available Not Available atorvastati n 40 mg tablet TK 1 T PO QHS active Not Available Not Available No t Available cilostazol 100 mg tablet 12/08 completed Not Available Not Available Not Available prednisone 10 mg tablet TAKE 1 TABLET BY MOUTH EVERY DAY FOR 7 DAYS DIRECTED 10/27 completed Not Available Not Available Not Available atorvastati n 20 mg tablet TK 1 T PO QD 01/23 completed Not Available Not Available Not Available nabumetone 750 mg tablet 11/06 completed Not Available Not Available Not Available trazodone 50 mg tablet Take 1 tablet every day by oral route at bedtime for 90 days. 11/10 completed Not Available Not Available Not Available azithromyci n 250 mg tablet TK 2 TS PO AT ONCE TODAY THEN TK 1 T PO ONCE D FOR 4 DAYS 09/25 completed Not Available Not Available Not Available benzonatate 200 mg capsule TAKE 1 CAPSULE BY MOUTH EVERY 8 HOURS FOR 7 DAYS NEEDED 10/27 completed Not Available Not Available Not Available hydrocodone 5 mg-acetamin ophen 325 mg tablet TK 1 TO 2 TABLETS PO Q 4 HOURS PRF PAIN 12/05 completed Not Available Not Available Not Available donepezil 10 mg tablet Take 1 tablet every day by oral route at bedtime for 90 days. 2024 active Not Available Not Available Not Avai lable bupivacaine HCl 0.5 % (5 mg/mL) injection solution in office 09/25 completed Not Available Not Available Not Available prednisone 20 mg tablet Take 2 tablets every day by oral route for 7 days. active Not Available Not Available No t Available clopidogrel 75 mg tablet TK 1 T PO D active Not Available Not Available No t Available amlodipine 5 mg tablet TAKE ONE TABLET BY MOUTH ONCE DAILY active Not Available Not Available No t Available folic acid 400 mcg tablet Take 1 tablet every day by oral route as directed for 90 days. 2024 active Not Available Not Available Not Avai lable aspirin 81 mg tablet,kaylynn yed release Take 1 tablet every day by oral route. 11/06 completed Not Available Not Available Not Available doxycycline monohydrate 100 mg tablet TK 1 T PO DAILY 11/04 completed Not Available Not Available Not Available tramadol 50 mg tablet 11/06 completed Not Available Not Available Not Available triamcinolo ne acetonide 0.1 % topical cream APPLY A THIN LAYER TO THE AFFECTED AREA(S) BY TOPICAL ROUTE 2 TIMES PER DAY 2024 active Not Available Not Available Not Avai lable levothyroxi ne 25 mcg tablet TAKE 1 TABLET BY MOUTH EVERY DAY 10/14 completed Not Available Not Available Not Available Kenalog 40 mg/mL suspension for injection Take 40 mg every day by injection route for 1 day. 09/19 completed [facility] [phone] Not Available Not Available Not Available oxycodone-a cetaminophe n 5 mg-325 mg tablet TK ONE T PO BID PRF LEG PAIN active Not Available Not Available No t Available alprazolam 0.5 mg tablet TAKE 1/2 TO 1 TABLET BY MOUTH EVERY DAY NEEDED FOR STRESS 08/24 completed Not Available Not Available Not Available potassium chloride ER 20 mEq tablet,exte nded release(par t/cryst) Take 1 tablet every day by oral route as directed for 90 days. 2024 active Not Available Not Available Not Avai lable doxycycline monohydrate 50 mg tablet 12/06 completed Not Available Not Available Not Available hydrocortis one 2.5 % lotion 12/06 completed Not Available Not Available Not Available trazodone 100 mg tablet Take 1 tablet every day by oral route at bedtime for 90 days. 04/13 completed Not Available Not Available Not Available Kenalog 10 mg/mL suspension for injection in office 09/25 completed [facility]: [phone] Not Available Not Available Not Available baclofen 10 mg tablet TAKE 1 TABLET BY MOUTH FOUR TIMES DAILY NEEDED 11/06 completed Not Available Not Available Not Available amlodipine 10 mg tablet TAKE 1 TABLET EVERY DAY 04/13 completed Not Available Not Available Not Available doxycycline monohydrate 100 mg capsule 12/06 completed Not Available Not Available Not Available levothyroxi ne 50 mcg tablet TAKE 1 TABLET EVERY DAY QAM 2024 active Not Available Not Available Not Avai lable cyanocobala min (vit B-12) 1,000 mcg/mL injection solution Inject 1 mL every month by subcutane ous route for 1 day. 2024 active pt fadumo well Not Available Not Available Not Available trazodone 150 mg tablet Take 1 tablet every day by oral route at bedtime for 90 days. 2024 active Not Available Not Available Not Avai lable triamcinolo ne acetonide 0.1 % topical ointment Apply 1 applicati on twice a day by topical route as needed. active Not Available Not Available No t Available clotrimazol e-betametha sone 1 %-0.05 % topical cream APPLY TOPICALLY TO THE AFFECTED AREA TWICE DAILY NEEDED 09/25 completed Not Available Not Available Not Available lisinopril 10 mg tablet 01/23 completed Not Available Not Available Not Available metronidazo le 0.75 % topical cream APPLY TO AFFECTED AREA BID 12/08 completed Not Available Not Available Not Available losartan 25 mg tablet TAKE 1 TABLET EVERY DAY 08/24 completed Not Available Not Available Not Available sertraline 25 mg tablet TAKE 1 TABLET BY MOUTH EVERY DAY 08/24 completed Not Available Not Available Not Available omeprazole 20 mg capsule,del ayed release TK ONE C PO QD 2024 active Not Available Not Available Not Avai lable aspirin 81 mg chewable tablet 08/13 completed Not Available Not Available Not Available hydroxyzine HCl 25 mg tablet TAKE 1 TABLET BY MOUTH THREE TIMES DAILY 08/24 completed Not Available Not Available Not Available desonide 0.05 % lotion 12/06 completed Not Available Not Available Not Available cyanocobala min (vit B-12) 1,[address] 2 tablets every day by sublingua l route as directed for 90 days. 2024 active Not Available Not Available Not Avai lable mupirocin 2 % topical ointment APPLY TO NOSTRILS BID FOR 5 DAYS PRIOR TO SURGERY 08/24 completed Not Available Not Available Not Available furosemide 20 mg tablet TK 0.5-1 T PO QAM 2024 active Not Available Not Available Not Avai lable selenium sulfide 2.5 % shampoo 12/06 completed Not Available Not Available Not Available fluocinonid e 0.05 % topical solution 12/06 completed Not Available Not Available Not Available levofloxaci n 500 mg tablet Take 1 tablet every 24 hours by oral route for 7 days. active Not Available Not Available No t Available celecoxib 100 mg capsule 12/05 completed Not Available Not Available Not Available Vitamin B-1 100 mg tablet active Not Available Not Available Not Available losartan 100 mg tablet active Not Available Not Available Not Available amoxicillin 875 mg-potassiu m clavulanate 125 mg tablet 09/25 completed Not Available Not Available Not Available amoxicillin 500 mg-potassiu m clavulanate 125 mg tablet TAKE 1 TABLET BY MOUTH TWICE DAILY FOR 1 WEEK 08/28 completed Not Available Not Available Not Available escitalopra m 10 mg tablet TAKE 1 TABLET BY MOUTH EVERY DAY 06/16 completed Not Available Not Available Not Available escitalopra m 20 mg tablet Take 1 tablet every day by oral route. 2024 active Not Available Not Available Not Avai lable ProAir HFA 90 mcg/actuati on aerosol inhaler INHALE 2 PUFFS PO Q 4 HOURS active Not Available Not Available No t Available Combigan 0.2 %-0.5 % eye drops 12/06 completed Not Available Not Available Not Available ropivacaine (PF) 5 mg/mL (0.5 %) injection solution in office 05/16 completed Not Available Not Available Not Available Virtussin AC 10 mg-100 mg/5 mL oral liquid TK 5 TO 10 ML PO Q 4 TO 6 H PRN COU 03/27 completed Not Available Not Available Not Available selenium sulfide 2.5 % lotion 12/06 completed Not Available Not Available Not Available Fluzone High-Dose 2019-20 (PF) 180 mcg/0.5 mL intramuscul ar syringe ADM 0.5ML IM UTD 08/13 completed Not Available Not Available Not Available Vitals Date Recorded Body height Body mass index (BMI) Body weight Body temperature Oxygen saturation Oxygen saturation in Arterial blood by Pulse oximetry Heart rate Systolic And Diastolic Provider Name and Address Organization Details Last Updated DateTime 5 160.02 cm 33 kg/m2 36453.9 8 g 97.2 [degF] 97 % 97 % 68 /min 138/70 mm[Hg] Yaneli Isbell RN [facility] [employer] [facility] 5 12:33:27 Date Recorded Body height Body mass index (BMI) Body weight Body temperature Oxygen saturation Oxygen saturation in Arterial blood by Pulse oximetry Heart rate Systolic And Diastolic Provider Name and Address Organization Details Last Updated DateTime 160.02 cm 31.3 kg/m2 72820.0 6 g 97.1 [degF] 97 % 97 % 55 /min 130/70 mm[Hg] Maryann Lee RN [facility] [employer] [facility] 5 15:14:19 Date Recorded Body height Provider Name an d Address Organization Details Last Updated DateTime 12/09/2023 160.02 cm Raza Murguia [facility] 12/09/2023 16:42:51 Date Recorded Respiratory rate Oxygen saturation Oxygen saturation in Arterial blood by Pulse oximetry Systolic And Diastolic Provider Name and Address Organization Details Last Updated DateTime 01/13/2024 20 /min 95 % 95 % 130/68 mm[Hg] Jose L Rodriguez MD [address] [facility], [facility] [address], [place], [address], [facility] [employer] [facility] 4 12:36:43 Date Recorded Body height Body mass index (BMI) Body weight Body temperature Heart rate Provider Name and Address Organization Details Last Updated DateTime 01/13/2024 160.02 cm 32.1 kg/m2 15960.57 g 97.2 [degF] 75 /min Dinorah Jeronimo RN [facility] [employer] [facility] 4 12:15:55 Social History Question Answer Notes LastModified by Organizat ion Details LastModified Time Tobacco Smoking Status Never Smoker Not Available [employer] 04/18/2022 09:12:55 Do You Have An Advance Directive? No [id number] Information not available 04/18/2022 Are You Blind Or Do You Have Difficulty Seeing? No MIGRATION.53402 74270 Information not available 04/18/2022 What Is Your Level Of Caffeine Consumption? Moderate MIGRATION.40949 80571 Information not available 04/18/2022 How Much Tobacco Do You Chew? None MIGRATION.75200 44787 Information not available 04/18/2022 In The 14 Days Before Symptom Onset, Have You Had Close Contact With A Laboratory-confi rmed COVID-19 While That Case Was Ill? No MIGRATION.60706 95056 Information not available 04/18/2022 In The 14 Days Before Symptom Onset, Have You Had Close Contact With A Person Who Is Under Investigation For COVID-19 While That Person Was Ill? No MIGRATION.04306 75967 Information not available 04/18/2022 Are You Deaf Or Do You Have Serious Difficulty Hearing? No MIGRATION.18156 21506 Information not available 04/18/2022 What Type Of Diet Are You Following? REGULAR MIGRATION.98548 27824 Information not available 04/18/2022 Which Illicit Or Recreational Drugs Have You Used? No MIGRATION.14576 51656 Information not available 04/18/2022 Where Do You Live? SingleLevelHouse Information not available 01/13/2024 Do You Have A Medical Power Of Brick Or Block Maker? No MIGRATION.73616 80164 Information not available 04/18/2022 How Many Children Do You Have? 3 Information not available 01/13/2024 Have You Ever Been Counseled For Unhealthy Alcohol Use? No MIGRATION.29669 51958 Information not available 04/18/2022 Do You Have Any Pets? Yes Information not available 01/13/2024 What Is Your Relationship Status? Information not available 01/13/2024 Do You Use Your Seat Belt Or Car Seat Routinely? Yes Information not available 01/13/2024 Do You Have Smoke And Carbon Monoxide Detectors In Your Home? Yes Information not available 01/13/2024 Are You Passively Exposed To Smoke? Yes Information not available 01/13/2024 Are There Any Smokers In Your House? No Information not available 01/13/2024 How Much Tobacco Do You Smoke? No MIGRATION.34849 03915 Information not available 04/18/2022 Do You Participate In Social Media? No Information not available 01/13/2024 Has Tobacco Cessation Counseling Been Provided? No MIGRATION.08860 46063 Information not available 04/18/2022 Have You Recently Traveled Abroad? No MIGRATION.54316 78737 Information not available 04/18/2022 Do You Have Difficulty Walking Or Climbing Stairs? Yes Very Slow Information not available 01/13/2024 Sex: Unknown Functional Status Question Answer Note LastModified by [employer] Details LastModified Time Do you or have you ever used smokeless tobacco? Never used smokeless tobacco MIGRATION.342201 8384 Information not available 04/18/2022 Are you currently employed? No Information not available 01/13/2024 Do you have transportation difficulties? No MIGRATION.983856 4921 Information not available 04/18/2022 Are you able to care for yourself? Yes MIGRATION.915308 4593 Information not available 04/18/2022 Do you have difficulty dressing or bathing? No MIGRATION.503739 7973 Information not available 04/18/2022 Do you or have you ever used e-cigarettes or vape? Never used electronic cigarettes MIGRATION.860473 5078 Information not available 04/18/2022 What is your exercise level? Occasional MIGRATION.909704 5848 Information not available 04/18/2022 Do you use any illicit or recreational drugs? No MIGRATION.777735 9634 Information not available 04/18/2022 Do you or have you ever used any other forms of tobacco or nicotine? No MIGRATION.310832 0164 Information not available 04/18/2022 What is your level of alcohol consumption? Occasional MIGRATION.715233 4090 Information not available 04/18/2022 Are you able to walk? YESWOREST MIGRATION.930084 7238 Information not available 04/18/2022 Do you have difficulty doing errands alone? No MIGRATION.047705 5743 Information not available 04/18/2022 What is your occupation? retired MIGRATION.023085 0487 Information not available 04/18/2022 Mental Status Question Answer Note LastModified by Kwelia ion Details LastModified Time Do you have difficulty concentrating, remembering or making decisions? No MIGRATION.[id number] Information not available 04/18/2022 Family History Relationship Description Onset Age of this Age Resolved Age Notes LastModified by Organization Details LastModified Time Father Family history of malignant neoplasm MIGRATION.[id number] Not available 04/18/2022 09:13:07 Mother Heart disease MIGRATION.[id number] Not available 04/18/2022 09:13:07 Medical History Condition Response USE OF BLOOD THINNERS Y HEART DISEASE/HEART PROBLEMS Y HYPERTENSION Y Gynecological History Statement/Question Response Current Control Method Menopause Breast Problems no Obstetrics History GPAL:G 0 P 0 0 0 0 Immunizations Vaccine Type Date Status Note Provider Nam e and Address Organization Details Recorded Time Influenza, high-dose, quadrivalent, PF 1 completed Jose L Rodriguez MD [address] [place] [address], [address], [facility] [employer] [facility] 09/26/2023 15:33:48 COVID-19, mRNA, LNP-S, PF, 30 mcg/0.3 mL dose 1 completed Jose L Rodriguez MD [address], [place], [address], [employer] [facility] [employer] [facility] 09/26/2023 15:33:48 COVID-19, mRNA, LNP-S, PF, 30 mcg/0.3 mL dose 1 completed Jose L Rodriguez MD [address], [address], [place], [address], [facility] [employer] [facility] [employer] [facility] 09/26/2023 15:33:48 COVID-19, mRNA, LNP-S, PF, 30 mcg/0.3 mL dose 1 completed Jose L Rodriguez MD [address], [address], [place], [address], [employer] [facility] [employer] 09/26/2023 15:33:48 COVID-19, mRNA, LNP-S, PF, 30 mcg/0.3 mL dose, sara-sucrose 2 completed Jose L Rodriguez MD [address], [place], [address], [employer] [facility] [employer] 09/26/2023 15:33:48 Influenza, high-dose, trivalent, PF 9 completed Jose L Rodriguez MD [address] [facility], [facility] [address], [place], [address], [facility] [employer] [facility] [employer] [facility] 09/26/2023 15:33:48 Influenza, adjuvanted, quadrivalent, PF 3 completed Jose L Rodriguez MD [address] [facility], [facility] [address], [place], [address], [facility] [employer] [facility] [employer] 09/26/2023 17:15:35 COVID-19, mRNA, LNP-S, PF, sara-sucrose, 30 mcg/0.3 mL 3 completed Jose L Rodriguez MD [address] [facility], [facility] [address], [place], [address], [facility] [employer] 09/26/2023 17:15:35 COVID-19 IV Non-US Vaccine (COVAXIN) 1 completed Not Available [facility] 03/28/2023 07:41:06 COVID-19 IV Non-US Vaccine (COVAXIN) 1 completed Not Available [facility] 03/28/2023 07:41:06 pneumococcal polysaccharide PPV23 1 completed Not Available [facility] 03/28/2023 07:41:06 Influenza, high-dose, trivalent, PF 8 completed Not Available [facility] 03/28/2023 07:41:06 Influenza, high-dose, trivalent, PF 7 completed Not Available [facility] 03/28/2023 07:41:06 Pneumococcal conjugate PCV 13 7 completed Not Available [facility] 03/28/2023 07:41:06 Influenza, high-dose, trivalent, PF 6 completed Not Available [facility] 03/28/2023 07:41:06 Tdap 4 completed Raza pete [facility] [employer] 10/29/2023 08:21:03 Past Encounters Encounter ID Performer Location Encounter Start Date Encounter Closed Date Diagnosis/Indication Diagnosis SNOMED-CT Code Diagnosis ICD10 Code Diagnosis Note [id number] DINA Castillo [facility] [place] [address] [place] [address] 07/13/2020 00:00:00 07/13/2020 20:38:56 [id number] Carly Bowman MD [facility] [facility] [place] [facility] [place] [address] [place] [address] 10/13/2020 00:00:00 10/13/2020 10:10:14 [id number] ELIUD Floyd [facility] [place] [facility] [place] [facility] [place] [address] [place] [address] 01/03/2021 00:00:00 01/03/2021 14:32:56 [id number] DINA Castillo [facility] [place] [address] [place] [address] 06/16/2021 00:00:00 06/16/2021 13:05:40 [id number] ELIUD Floyd [facility] [place] [facility] [place] [facility] [place] [address] [place] [address] 08/28/2021 00:00:00 08/28/2021 09:26:02 [id number] ELIUD Floyd [facility] [place] [facility] [place] [facility] [place] [address] [place] [address] 09/19/2021 00:00:00 09/19/2021 13:04:06 [id number] Carly Bowman MD [facility] [place] [facility] [place] [facility] [place] [address] [place] [address] 12/05/2021 00:00:00 12/18/2021 13:36:31 [id number] ELIUD Floyd [facility] [place] [facility] [place] [facility] [place] [address] [place] [address] 05/15/2022 09:59:14 05/15/2022 10:22:36 Pain in left lower limb 057798874 M79.605 Started 5 months ago, denies any injury or trauma.[place] l get XR to evaluate further. If no suspicious findings, may need to consider vascular pathology. [id number] Carly Bowman MD [facility] [address] [facility] [address] [place] [address] 08/13/2022 10:12:34 08/13/2022 14:43:07 Pain of left knee joint 6542527760 29393 M25.562 Pain along lateral joint line. Continue tylenol as needed.Wou ld like referral to f/u with Dr. Saha. Pruritic disorder 738707 002 L29.9 Advised to take in the evening, watch for any drowsiness . [id number] Carlos Saha MD [facility] [place] [address] [place] [address] 08/24/2022 11:47:35 08/24/2022 14:06:48 Pain of left knee joint 0366275238 72777 M25.335 [id number] Carlos Saha MD [facility] [place] [address] [place] [address] 11/26/2022 13:45:31 11/26/2022 14:22:02 Osteoarthritis of left knee joint 7144775689 51830 M17.12 [id number] Carlos Saha MD [facility] [place] [address] [place] [address] 02/25/2023 13:33:56 02/25/2023 16:04:41 Osteoarthritis of left knee joint 8387403464 55264 M17.12 [id number] Carly Bowman MD [facility] [place] [facility] [place] Carlos e [address] [facility] [address] [place] [address] 05/17/2023 16:15:21 05/17/2023 16:58:57 Peripheral vascular disease 162860655 I73.9 re-refer to Dr. 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 Urbina Hypothyroidism 69391123 E03.9 Hyperlipidemia 73389476 E78.5 Z79.899 Abnormal g ait due to impairment of balance 593169048 R26.89 offered home health referral but she declined for now [id number] Soren Dykes MD [facility] [place] [facility] [place] [facility] [place] [address] [place] [address] 06/05/2023 15:14:22 06/05/2023 15:34:39 Osteoarthritis of left knee joint 2040361243 98812 M17.12 [id number] Carly Bowman MD [facility] [place] [facility] [place] [address] [place] [address] 06/17/2023 11:35:51 06/17/2023 11:59:45 Mixed anxiety and depressive disorder 436276832 F41.8 begin escitalopr am 10 mg daily with foodf/u in 4 weeks 06/17/23: improving but not to baselinein crease escitalopr am 20 mg dailyf/u in 3 months or sooner if needed Benign ess ential hypertension 6549311 I[address] Urbina [id number] Jose L Rodriguez MD [address] [address] 09/26/2023 16:53:51 09/26/2023 17:53:47 Peripheral vascular disease 267796978 I73.9 Coronary arteriosclerosis 75837073 I25.10 Depressive disorder 3548 9007 F32.A Congestive heart failure 07926023 I50.9 Hypertensive disorder 38 931636 I10 Hypothyroidism 55113054 E03.9 Gastroesop hageal reflux disease without esophagitis 915193843 K21.9 Chronic hypokalemia 1046 9003 E87.6 Chronic insomnia 7876572 04 F51.04 Screening for osteoporosis 268681929 Z13.820 Bronchitis 40609195 J40 Cough 05455506 R05.9 Hospital i npatient stay within past 30 days 4278594858 106 Z76.89 Muscle weakness 14989998 M62.81 Impaired mobility 647680 05 Z74.09 [id number] Jose L Rodriguez MD [facility] [address] 10/28/2023 10:18:47 10/28/2023 11:04:18 Muscle weakness 44336180 M62.81 Peripheral vascular disease 665395537 I73.9 Coronary arteriosclerosis 64124501 I25.10 Depressive disorder 3548 9007 F32.A Congestive heart failure 08757337 I50.9 Hypertensive disorder 38 108866 I10 Hypothyroidism 22403510 E03.9 Gastroesop hageal reflux disease without esophagitis 170869743 K21.9 Chronic hypokalemia 1046 9003 E87.6 Chronic insomnia 4128996 04 F51.04 Impaired mobility 856955 05 Z74.09 Active immunization 3387 9002 Z23 Postmenopausal state 764 10479 Z78.0 Vitamin D deficiency 347 43923 E55.9 Pain of le ft knee joint 6607703238 59676 M25.562 Chronic [id number] Jose L Rodriguez MD [address] [address] 11/11/2023 11:34:10 11/11/2023 12:11:49 Muscle weakness 06976435 M62.81 Improved Peripheral vascular disease 180231792 I73.9 Coronary arteriosclerosis 54036601 I25.10 Depressive disorder 3548 9007 F32.A Congestive heart failure 51992948 I50.9 Hypertensive disorder 38 142019 I10 Hypothyroidism 84388067 E03.9 Gastroesop hageal reflux disease without esophagitis 290437276 K21.9 Chronic hypokalemia 1046 9003 E87.6 Chronic insomnia 3959130 04 F51.04 Impaired mobility 097005 05 Z74.09 Vitamin D deficiency 347 85036 E55.9 Improved Pain of le ft knee joint 5357243161 05463 M25.562 Chronic Folic acid deficiency (non anemic) 04842846 E53.8 Vitamin B1 2 deficiency (non anemic) 56639391 E53.8 Microscopic hematuria 19 2061405 R31.29 [id number] Jose L Rodriguez MD [address] [address] 11/18/2023 11:09:03 11/18/2023 18:05:20 Vitamin B12 deficiency (non anemic) 54505186 E53.8 [id number] Jose L Rodriguez MD [place] [address] 11/25/2023 11:33:58 11/25/2023 14:45:45 Vitamin B12 deficiency (non anemic) 24270657 E53.8 [id number] Jose L Rodriguez MD [place] [address] 12/02/2023 12:39:51 12/02/2023 12:45:42 Vitamin B12 deficiency (non anemic) 08141076 E53.8 Microscopic hematuria 19 0244959 R31.29 [id number] Jose L Rodriguez MD [place] [address] 12/09/2023 15:23:45 12/09/2023 16:44:09 Vitamin B12 deficiency (non anemic) 79560500 E53.8 [id number] Jose L Rodriguez MD [place] [address] 01/13/2024 12:09:18 01/13/2024 12:46:04 Folic acid deficiency (non anemic) 24912648 E53.8 Vitamin B1 2 deficiency (non anemic) 17111352 E53.8 Microscopic hematuria 19 2893317 R31.29 Muscle weakness 81264849 M62.81 Improved Peripheral vascular disease 092036479 I73.9 Coronary arteriosclerosis 82204887 I25.10 Depressive disorder 3548 9007 F32.A Congestive heart failure 13106086 I50.9 Hypertensive disorder 38 078891 I10 Hypothyroidism 52690093 E03.9 Gastroesop hageal reflux disease without esophagitis 044108519 K21.9 Chronic hypokalemia 1046 9003 E87.6 Chronic insomnia 8534728 04 F51.04 Impaired mobility 454641 05 Z74.09 Vitamin D deficiency 347 54873 E55.9 Improved Pain of le ft knee joint 1252843544 36210 M25.562 Chronic [id number] Jose L Rodriguez MD [address] [address] 04/13/2024 12:23:09 04/13/2024 12:52:05 Microscopic hematuria 407607950 R31.29 Folic acid deficiency (non anemic) 13331797 E53.8 Vitamin B1 2 deficiency (non anemic) 37408105 E53.8 Muscle weakness 73008986 M62.81 Improved Peripheral vascular disease 446415772 I73.9 Coronary arteriosclerosis 12660728 I25.10 Depressive disorder 3548 9007 F32.A Congestive heart failure 95815677 I50.9 Hypertensive disorder 38 976684 I10 Hypothyroidism 25810006 E03.9 Gastroesop hageal reflux disease without esophagitis 757203641 K21.9 Chronic hypokalemia 1046 9003 E87.6 Chronic insomnia 1845642 04 F51.04 Impaired mobility 416523 05 Z74.09 Vitamin D deficiency 347 65061 E55.9 Improved Pain of le ft knee joint 9546307655 10629 M25.562 Chronic Dementia 47874949 F03.90 Dry skin dermatitis 2600 22247 L85.3 [id number] Jose L Rodriguez MD [address] [address] 08/17/2024 14:59:59 08/17/2024 15:34:29 Microscopic hematuria 288740769 R31.29 Folic acid deficiency (non anemic) 53083645 E53.8 Vitamin B1 2 deficiency (non anemic) 11637277 E53.8 Muscle weakness 89785541 M62.81 Peripheral vascular disease 056263460 I73.9 Coronary arteriosclerosis 32326646 I25.10 Depressive disorder 3548 9007 F32.A Congestive heart failure 70463156 I50.9 Hypertensive disorder 38 276815 I10 Hypothyroidism 09346359 E03.9 Gastroesop hageal reflux disease without esophagitis 552791182 K21.9 Chronic hypokalemia 1046 9003 E87.6 Chronic insomnia 3827424 04 F51.04 Impaired mobility 414964 05 Z74.09 Vitamin D deficiency 347 18930 E55.9 Improved Pain of le ft knee joint 7661379161 21752 M25.562 Chronic Dementia 79311314 F03.90 Dry skin dermatitis 2600 46828 L85.3 Pain of hip region 07666 002 M25.552 G89.29 Peripheral edema 6772573 00 R60.0 Peripheral Health Concerns Section Related Observation LastModified by Organization Detai ls LastModified Time None Recorded Concern Status LastModified by Organization Details LastModified Time None Recorded Advance Directives Directive N: Payers Insurance Date Sequence Insurance Name Policy Number Policy Moralez Covered Member ID Moralez Member ID Guarantor Name 08/14/2024 1 [employer] - GOLD PLUS (MEDICARE REPLACEMENT/A DVANTAGE - HMO) Shannon Sanderson [id number] Shannon Sanderson Notes Date Note Type Note Provider Name and Address Organization Details Recorded Time 01/13/2024 text/html Pt is here for f /u on her lab and chronic conditions. Feeling overall much better than her last visit. Denies any problem with meds. Denies any new concern. Pt wants me to fill a parking placard for her today. Pt has not started [facility] yet. Pt says there is some insurance issue with them. Pt is f/u with ortho for her chronic Lt knee pain and is getting injection with them. Pt has significant PAD and is f/u with [facility] for it and got few stents placed with them. Pt lives at home by herself with her dog. She has good family support. Jose L Rodriguez MD [address], [address], [facility] [employer] 01/13/2024 12:38:44 04/13/2024 text/html Pt is here for f /u on her lab and chronic conditions. Feeling overall much better than her last visit. Denies any problem with meds. Denies any new concern. Pt forgot to go for labs. Pt wants to get Vit B12 shot today. Pt has not started [facility] yet. Pt says there is some insurance issue with them. Pt is f/u with ortho for her chronic Lt knee pain and is getting injection with them. Pt has significant PAD and is f/u with [facility] for it and got few stents placed with them. Pt lives at home by herself with her dog. She has good family support. Jose L Rodriguez MD [address] [facility] [address], [place], [address], [employer] 04/13/2024 12:53:10 08/17/2024 text/html Pt is here for f /u on her lab and chronic conditions. Feeling overall much better than her last visit. Denies any problem with meds. C/o Lt hip area pain for last few weeks and she needs new referral for her ortho. Pt had Lt hip replacement done in the past. Pt wants to get Vit B12 shot today. Pt has not started [facility] yet. Pt says there is some insurance issue with them. Pt is f/u with ortho for her chronic Lt knee pain and is getting injection with them. Pt has significant PAD and is f/u with [facility] for it and got few stents placed with them. Pt lives at home by herself with her dog. She has good family support. Jose L Rodriguez MD [address] [facility] [address], [place], [address], [employer] 08/17/2024 15:35:02 OBGyn Episode No OBEpisode recorded.
--- OUTSIDE RECORDS SUMMARY | 2024-08-24 12:11 | XMS_ITS | Clinical Summary ---
Author Organization [facility] [address] [place] [id number] Care Team Providers Care Retouching Operator Name Role Phone Carly Bowman MD Primary [...] (11/21/2021): Added automatically from request for surgery [id number] Orthopedic aftercare 02/16/2020 Hypertension 01/04/2020 Hyperlipidemia 01/04/2020 Anxiety 01/04/2020 Depression 01/04/2020 CAD (coronary artery disease) 01/04/2020 Hypothyroidism 01/04/2020 At risk for obstructive sleep apnea 01/04/2020 PAD (peripheral artery disease) 01/04/2020 Class 1 obesity in adult 01/04/2020 Primary osteoarthritis of right hip 12/08/2019 Overview (12/08/2019): Added automatically from request for surgery [id number] Immunizations Immunization Administration Dates Next Due Influenza, Trivalent, High D ose, Split, Preservative Free, Intramuscular 01/01/2019,11/06/2017,01/23/2017,12/06 Pneumococcal Conjugate PCV 13 01/23/2017 Surgical History Surgery Date Site/Laterality Comments APPENDECTOMY TUBAL LIGATION SKIN CANCER EXCISION Right arm EYE SURGERY Bilateral LASIK TONSILLECTOMY JOINT REPLACEMENT Left hip TOTAL HIP ARTHROPLASTY Left RENAL ARTERY STENT 02/18/2014 - 02/17/2015 CAROTID ENDARTERECTOMY 02/18/2017 - 02/17/2018 Left ILIAC ARTERY STENT Left w/venoplsty CORONARY ANGIOPLASTY WITH STENT PLACEMENT Prox, mid LAD -GISELA x 2 Medical History Medical History Date Comments Coronary artery disease Hypothyroid Hypertension GERD (gastroesophageal reflux disease) Depression Cancer (HCC) skin cancer righ t arm/face Hyperlipidemia Carotid stenosis Anxiety Anemia Arthritis Aortic stenosis PAD (peripheral artery disease) Dizziness Family History Medical History Relation Name Comments Diabetes Brother Cancer Father Diabetes Mother Heart disease Mother Diabetes Sister Relation Name Status Comments Brother Father Mother Sister Social History Tobacco Use Types Packs/Day Years [...] when you are drinking? 1 or 2 Q3: How often do you have si x or more drinks on one occasion? Less than monthly 12/04/2021 Personal Safety Answer Date Recorded Getting School Help Needed Not on file 02/19 Comments Unknown Sex and Gender Information Value Date Recorded Sex Assigned at Not on file Legal Sex Female 11:15 AM PROFESSIONAL FEE [employer] Gender Identity Not on file Sexual Orientation Not on file Obstetrics History Last Filed Vital Signs Vital Sign Reading [...] 12/12/2021 9:09 AM CDT Plan of Treatment Health Maintenance Due Date Last Done Comments Depression Screening 1935 Osteoporosis Screening-Bone Density Scan 1935 DTaP/Tdap/Td Vaccine (1 - Tdap) 1948 Hepatitis B Screening 1955 Zoster Vaccine (1 of 2) 1987 Well Visit 65+ 2002 Fall Risk Assessment 12/13/2022 12/13/2021 Covid-19 Vaccine (2023-2 5 season) 2023 09/11/2021, 12/16/2020, 05/08/2020, Additional history exists Influenza Vaccine (Season Ended) 2024 12/16/2020, 01/01/2019, 11/06/2017, Additional history exists Pneumococcal vaccine 65+ Completed 10/13/2020, 1207/2016 Medical Devices Implanted Type Area Lens Examiner Device Identifier Shelf Expiration Date Model / Serial / Lot Stent Implanted:Qty: 2 Stent N/A: Coronary Stent Stent Left: Neck Stent Endoprosthesis Wallstent Rp Unistep Plus Metal L100 Cm L90 Mm L75 Cm Od18 Mm Odsec10 Fr Flexible Delivery System - [id number] Implanted:Qty: 1 on 03/08/2017 by Andrew Mann MD at [facility] [employer] Radha 12/14/2018 [id number] / / [id number] [employer] [id number] Cup Acetabular Bi-Mentum Od51mm Femoral Proximal Press Fit - [id number] Implanted:Qty: 1 on 01/05/2020 by Kostas Mina MD at [facility] Right: Hip [employer] 11/18/2023 [id number] / / [id number] [employer] [id number] Articul/Cecilio 28mm Cementless Hip +5mm 12/14 Taper Head Femoral Latex Free - [id number] Implanted:Qty: 1 on 01/05/2020 by Kostas Mina MD at [facility] Right: Hip [employer] 07/18/2024 [id number] / / [id number] [employer] [id number] Actis L107 Mm Collar Hip 6 High Offset Stem Femoral - [id number] Implanted:Qty: 1 on 01/05/2020 by Kostas Mina MD at [facility] Right: Hip [employer] 03/20/2029 [id number] / / [id number] [employer] [id number] Liner Acetabular Bi-Mentum Polyethylene Od51mm Id28mm Femoral Proximal - [id number] Implanted:Qty: 1 on 01/05/2020 by Kostas Mina MD at [facility] Right: Hip [employer] 12/19/2023 [id number] / / [id number] Med[employer] Resolute Rick 3mm 2.1-2.7fr 15mm 140cm Rapid Exchange Radiopaque [id number] - [id number] Implanted:Qty: 1 on 07/25/2021 by Isma Mendoza MD at [facility] [employer] 04/21/2024 [id number] / / [id number] [employer] Radha Synergy Xd Monorail 3.5mm 24mm 144cm Delivery System 1 Access [id number] - [id number] Implanted:Qty: 1 on 07/25/2021 by Isma Mendoza MD at [facility] 12/13/2022 [id number] / / [id number] [employer] Valve 23mm Aortic Diamond 3 Commander Leonard Transcatheter Ultra Low Profile [id number] - [id number] - [id number] Implanted:Qty: 1 on 12/12/2021 by Isma Mendoza MD at [facility] [employer] 06/13/2024 [id number] / [id number] / [employer] Radha Synergy Xd Monorail 2.25mm 16mm 144cm Delivery System 1 Access [id number] - [id number] Implanted:Qty: 1 on 12/12/2021 by Isma Mendoza MD at [facility] [employer] Radha 05/01/2023 [id number] / / [id number] [employer] Radha Stent Drug Eluting S Megatron Us Mr [id number] [id number] - [id number] Implanted:Qty: 1 on 12/12/2021 by Isma Mendoza MD at [facility] [employer] Radha 06/06/2022 [id number] 400 / / [id number] Medtronic Card Vas Surgery 2.00 X 12mm [place] Rx Coronary Stent [id number] - [id number] Implanted:Qty: 1 on 12/12/2021 by Isma Mendoza MD at [facility] [employer]onic Card Vasc Surgery 04/28/2023 [id number] / / [id number] [employer] Device Clsr Perclose Prostyle Sut-Mediatd Closure-Repair Sys 98179-89 - [id number] Implanted:Qty: 1 on 12/12/2021 by Isma Mendoza MD at [facility] [employer] [id number] / / [employer] Device Clsr Perclose Prostyle Sut-Mediatd Closure-Repair Sys 91785-27 - [id number] Implanted:Qty: 1 on 12/12/2021 by Isma Mendoza MD at [facility] [id number] / / Insurance [id number] MEDICARE PPO [id number] MEDICARE PPO [facility] MEDICARE HMO Advance Directives For more information, please contact: [phone] * Full Code (Latest Code Status on File) Date Activated Date Inactivated Comments 01/05/2020 1:33 PM 01/06/2020 5:27 PM * Full Code Date Activated Date Inactivated Comments 04/17/2017 6:06 PM 04/18/2017 2:33 PM Care Teams Retouching Operator Relationship Specialty Start Date End Date Carly Bowman MD PCP - General Family Medicine 02/01/17 Isma Mendoza MD Consulting Physician Cardiology 07/26/21
== END 2024-08-24 12:05 | disposition home or self-care (01) ==
PROVIDERS: PCP Family Medicine; Visit Provider Family Medicine
DX: M51.369 Other intervertebral disc degeneration, lumbar region without mention of lumbar back pain or lower extremity pain (principal)
CPT/HCPCS: 73502